=== PATIENT | female | born 1940 | race African-American/Black ===

== ENCOUNTER 2017-06-24 10:24 | Inpatient (IN) | payer OTHER ==
[~2017-06-24 10:24] MED LIST: HEPARIN NA (PORCINE) 5,000 UNITS/ML 1ML VIAL SQ SCH
[2017-06-24 10:36] VITALS: BMI 26.6
[2017-06-24] MEDS ORDERED: ONDANSETRON 4 MG/2 ML VIAL IVPUSH ONE (10:55)
[2017-06-24] MEDS ORDERED: SODIUM CHLORIDE 1,000 ML IV STA (10:55)
--- NOTE | 2017-06-24 11:01 | PDOC ---
History of Present Illness - General History Source: Patient Exam Limitations: No Limitations - History of Present Illness Initial Comments: 06/24/17 11:34 The patient is a 77-year old female with a significant past medical history of hypertension, hyperlipidemia, thyroid disease, biopsy of throat mass, CVA who presents to the ED with vomiting and abdominal pressure. Patient states that she has not been feeling well and reports left sided abdominal pain from gas. She reports taking Maalox with no relief. Patient states that she vomited 2 times today with phlegm. She reports dizziness and mild SOB. She reports intermittent diarrhea. She denies any constipation. She states that she feels weak and was unable to present to her PT at [facility] due to her weakness. She states that she has developed left sided weakness after her CVA and now ambulates with a walker. Patient denies any fever or chills. Denies any chest pressure or leg swelling. Patient denies any vision changes. Patient denies dyspnea, recent travel, or sick contacts. Pt is significant weakness of the L arm (unable to move), and weakness of L leg (able to ambulate with cane). no changes from baseline. No recent travel or known sick contacts. Patient is a poor historian. <Valarie Packer - Last Filed: 06/24/17 13:48> - General History Source: Patient Exam Limitations: No Limitations <Rosetta Gilbert - Last Filed: 06/26/17 20:08> - General Chief Complaint: Pain Stated Complaint: Nausea/Vomiting/ABD PAIN Time Seen by Provider: 06/24/17 10:31 Past History <Valarie Packer - Last Filed: 06/24/17 13:48> - Past Medical History CVA: Yes HTN: Yes Hypercholesterolemia: Yes Psychiatric Problems: Yes Thyroid Disease: Yes - Psycho/Social/Smoking Cessation Hx Anxiety: No Suicidal Ideation: No Smoking Status: No Smoking History: Never smoked Number of Cigarettes Smoked Daily: 0 Information on smoking cessation initiated: No Hx Alcohol Use: No Drug/Substance Use Hx: No <Rosetta Gilbert - Last Filed: 06/26/17 20:08> - Past Medical History Allergies/Adverse Reactions: Allergies Allergy/AdvReac Type Severity Reaction Status Date / Time No Known Allergies Allergy Verified 06/24/17 10:34 Home Medications: Ambulatory Orders Amlodipine Besylate 10 mg PO DAILY 06/24/17 Aspirin [ASA -] 81 mg PO DAILY 06/24/17 Atorvastatin Calcium 40 mg PO HS 06/24/17 Baclofen 10 mg PO Q6H 06/24/17 Biotin 2 tab PO DAILY 06/24/17 Donepezil HCl [Aricept -] 10 mg PO DAILY 06/24/17 Ergocalciferol (Vitamin D2) [Vitamin D2] 2 tab PO DAILY 06/24/17 Mag Carb/Al Hydrox/Alginic AC [Acid Gone Antacid Liquid] 15 ml PO TID 06/24/17 Mirtazapine [Remeron -] 15 mg PO DAILY 06/24/17 Omeprazole 40 mg PO DAILY 06/24/17 Sennosides [Senna] 8.6 mg PO DAILY 06/24/17 Trazodone HCl 50 mg PO DAILY 06/24/17 Review of Systems - Review of Systems Able to Perform ROS?: Yes Comments:: 06/24/17 11:34 GENERAL/CONSTITUTIONAL: No: fever, chills, loss of appetite. HEAD, EYES, EARS, NOSE AND THROAT: No: change in vision, ear pain, discharge, sore throat, throat swelling. CARDIOVASCULAR: No: chest pain, lightheadedness, palpitations, syncope RESPIRATORY: No: cough, shortness of breath, wheezing, hemoptysis, stridor. GASTROINTESTINAL: +left sided abdominal pressure, gas, vomiting, nausea, intermittent diarrhea. No:abdominal cramping, rectal bleeding, constipation. GENITOURINARY: No: dysuria, hematuria, frequency, urgency, flank pain. MUSCULOSKELETAL: No: back pain, neck pain, joint pain, muscle swelling or pain SKIN: No: lesions, pallor, rash or easy bruising. NEUROLOGIC: +headache, weakness. No: vertigo, paresthesias ENDOCRINE: No: unexplained weight gain or loss HEMATOLOGIC/LYMPHATIC: No: anemia, easy bleeding, swelling nodes <Valarie Packer - Last Filed: 06/24/17 13:48> *Physical Exam - Vital Signs Last Vital Signs Temp Pulse Resp BP Pulse Ox 98.7 F 92 H 17 155/91 99 06/24/17 10:32 06/24/17 10:32 06/24/17 10:32 06/24/17 10:32 06/24/17 10:32 - Physical Exam Comments: 06/24/17 13:48 GENERAL: The patient is in no acute distress. HEAD: Normal with no signs of trauma. EYES: PERRLA, EOMI, sclera anicteric, conjunctiva clear. ENT: Ears normal, nares patent, oropharynx clear without exudates. Moist mucous membranes. NECK: Normal range of motion, supple without lymphadenopathy, JVD, or masses. LUNGS: Breath sounds equal, clear to auscultation bilaterally. No wheezes, and no crackles. HEART:Regular rate and rhythm, normal S1 and S2 without murmur, rub or gallop. ABDOMEN: (+) left sided abdominal tenderness in both upper and lower quadrants less in LLQ. Soft, normoactive bowel sounds. No guarding, no rebound. EXTREMITIES: Normal range of motion, no edema. No clubbing or cyanosis. No erythema, or tenderness. NEUROLOGICAL: Cranial nerves II through XII grossly intact. Normal speech. No focal neurological deficits. MUSCULOSKELETAL: Back nontender to palpation, no CVA tenderness SKIN: Warm, Dry, normal turgor, no rashes or lesions noted. <Valarie Packer - Last Filed: 06/24/17 13:48> - Vital Signs Last Vital Signs Temp Pulse Resp BP Pulse Ox 98.7 F 92 H 17 155/91 99 06/24/17 10:32 06/24/17 10:32 06/24/17 10:32 06/24/17 10:32 06/24/17 10:32 <Rosetta Gilbert - Last Filed: 06/26/17 20:08> Heart Score/ECG Review #1 ECG reviewed & interpreted by me at: 11:48 General ECG Interpretation: Sinus Rhythm, Normal Rate, Normal Intervals, No acute ischemic changes 06/24/17 11:48 Twelve-lead EKG was performed and reviewed by me. There is normal sinus rhythm with a normal rate of 88 bpm. The axis is normal. The intervals are normal - pr: 170ms, QRS:90ms, QTc:447ms. There are no ST or T wave abnormalities. <Rosetta Gilbert - Last Filed: 06/26/17 20:08> ED Treatment Course - LABORATORY CBC & Chemistry Diagram: 06/24/17 11:07 06/24/17 11:07 - Medications Given in the ED: ED Medications Discontinued Medications Generic Name Dose Route Start Last Admin Trade Name Bertram PRN Reason Stop Dose Admin Ondansetron HCl 4 mg 06/24/17 10:55 06/24/17 11:10 Zofran Injection IVPUSH 06/24/17 10:56 4 mg ONCE ONE Administration <Valarie Packer - Last Filed: 06/24/17 13:48> - LABORATORY CBC & Chemistry Diagram: 06/25/17 06:00 06/25/17 06:00 - RADIOLOGY Radiology Studies Ordered: Category Date Time Status ABDOMEN & PELVIS CT WITH CONTR [CT] Stat CT Scan 06/24/17 10:53 Ordered <Rosetta Gilbert - Last Filed: 06/26/17 20:08> Medical Decision Making - Medical Decision Making 06/24/17 11:01 A portion of this note was documented by scribe services under my direction. I have reviewed the details of the note, within reason, and agree with the documentation with the following case summary and management plan written by me. Nursing documentation reviewed and incorporated into medical decision making This patient is a 77-year-old female with a history of HTN, HLD, CVA Pt presents to the ER with a complaint of abdominal pain No fevers Emesis x 2 Pt reports prior episodes like this DD: gastritis, pancreatitis, colitis, obstruction less likely Will do: 1. Labs 2. CT abd and pelvis Chemistries hemolyzed and have returned 4 hours later 06/24/17 14:24 Laboratory Tests 06/24/17 13:37 Sodium 141 Potassium 4.1 Chloride 105 Carbon Dioxide 28 BUN 11 Creatinine 0.8 Random Glucose 80 Creatine Kinase 268 H Troponin I 0.02 Total Protein 7.7 Albumin 3.9 Total Amylase 225 H Lipase 2038 H Pt has pancreatitis Due to?? - gallstone, hyperlipidemia??? Will start LR Will monitor closely Will plan to admit 06/24/17 14:34 CT pending PT seen in the ER by Dr Mcgregor 06/24/17 16:00 <Rosetta Gilbert - Last Filed: 06/26/17 20:08> *DC/Admit/Observation/Transfer - Attestations Scribe Attestion: 06/24/17 11:35 Documentation prepared by NOLAN Vigil, acting as medical pathologist for Rosetta Gilbert MD. <Valarie Packer - Last Filed: 06/24/17 13:48> - Discharge Dispostion Admit: Yes <Rosetta Gilbert - Last Filed: 06/26/17 20:08> Diagnosis at time of Disposition: Pancreatitis Qualifiers: Chronicity: acute Pancreatitis type: other Acute pancreatitis complication: unspecified Qualified Code(s): K85.80 - Other acute pancreatitis without necrosis or infection - Discharge Dispostion Condition at time of disposition: Stable - Referrals
[2017-06-24] MEDS ORDERED: ONDANSETRON 4 MG/2 ML VIAL ONE (11:09)
[2017-06-24 11:29] LABS: BASOPHIL 0.5 % (0-2.0); EOSINOPHIL 0.2 % (0-4.5); MCH 27.3 pg (25.7-33.7); MCHC 32.7 g/dl (32.0-36.0); MEAN CELL VOLUME 83.3 fl (80-96); PLATELET COUNT 300 K/MM3 (134-434); RDW 14.8 % (11.6-15.6); WHITE BLOOD COUNT 6.1 K/mm3 (4.0-10.0)
[2017-06-24 12:23] LABS: URINE APPEARANCE SLCLOUDY; URINE BILIRUBIN NEGATIVE (NEGATIVE); URINE BLOOD NEGATIVE (NEGATIVE); URINE COLOR YELLOW; URINE GLUCOSE (UA) NEGATIVE (NEGATIVE); URINE KETONE NEGATIVE (NEGATIVE); URINE NITRITE NEGATIVE (NEGATIVE); URINE PROTEIN NEGATIVE (NEGATIVE); URINE UROBILINOGEN NEGATIVE mg/dL (0.2-1.0)
[2017-06-24 12:24] LABS: URINE LEUK ESTERASE 1+ (NEGATIVE)
[2017-06-24 12:26] LABS: URINE BACTERIA RARE /hpf (NONE SEEN); URINE HYALINE CAST 3 /lpf; URINE MUCUS RARE; URINE RBC <1 /hpf (0-3); URINE WBC 5 /hpf (3-5); YEAST RARE
[2017-06-24 14:13] LABS: ALBUMIN 3.9 g/dl (3.4-5.0); AMYLASE 225 U/L (25-115); ANION GAP 8 (8-16); BILIRUBIN,TOTAL 0.4 mg/dL (0.2-1.0); CALCIUM 9.4 mg/dL (8.5-10.1); CO2 28 mmol/L (21-32); CREATININE 0.8 mg/dL (0.55-1.02); GLUCOSE,RANDOM 80 mg/dL (74-106); SGOT/AST 18 U/L (15-37); SGPT/ALT 29 U/L (12-78); TOT PROT 7.7 g/dl (6.4-8.2)
[2017-06-24 14:16] LABS: ALK PHOS 100 U/L (45-117); CPK 268 IU/L (26-192); TROPONIN I 0.02 ng/ml (0.00-0.05)
[2017-06-24] MEDS: LACTATED RINGERS SOLUTION 1,000 ML IV SCH (15:51)
--- NOTE | 2017-06-24 16:18 | EKG ---
Test Reason : Blood Pressure : / mmHG Vent. Rate : 088 BPM Atrial Rate : 088 BPM P-R Int : 170 ms QRS Dur : 090 ms QT Int : 370 ms P-R-T Axes : 039 -17 023 degrees QTc Int : 447 ms NORMAL SINUS RHYTHM POSSIBLE LEFT ATRIAL ENLARGEMENT BORDERLINE ECG WHEN COMPARED WITH ECG OF 08-FEB-2015 12:11, ST NO LONGER DEPRESSED IN LATERAL LEADS Confirmed by LOS WILSON MD ([id number]) on 06/24/2017 4:18:16 PM Referred By: Confirmed By:LOS WILSON MD
[2017-06-24] MEDS ORDERED: BACLOFEN 10 MG TABLET (FP) PO SCH (16:30)
[2017-06-24] MEDS ORDERED: PROCHLORPERAZINE INJECTION 10 MG/2 ML VIAL IVPB PRN (16:43)
[2017-06-24] MEDS ORDERED: PANTOPRAZOLE 40 MG TABLET (FP) PO SCH (16:45)
[2017-06-24] MEDS ORDERED: BACLOFEN 10 MG TABLET (FP) ONE (16:51)
[2017-06-24 16:52] LABS: CHOLESTEROL 183 mg/dL (50-200); LDL CHOLESTEROL (ONLY SJRH) 92 mg/dL (5-100)
--- NOTE | 2017-06-24 17:17 | HP ---
CHIEF COMPLAINT: LUQ abdominal pain PCP: Dr. Efrain Bucio HISTORY OF PRESENT ILLNESS: Patient is a 77 year old female with a PMHx of HTN, HLD, CVA (w/ residual left sided weakness) who presented for nonradiating, "squeezing and gassy" LUQ abdominal pain and two episodes of nonbloody nonbilious vomiting that started this morning at her adult daycare center. Patients family at bedside and report that her pain has been occurring intermittently for the last couple of months but worsened today and is now associated with dizziness and weakness, which promoted this ED visit. Patient was given Maalox but with no relief of symptoms. Patient otherwise denies fever, chills, chest pain, palpitations, shortness of breath, headache, dysuria, hematuria. PHYSICAL EXAMINATION Vital Signs - 24 hr 06/24/17 16:05 Pulse Rate [ 75 Apical] Respiratory 17 Rate Blood Pressure 160/88 [Right Arm] O2 Sat by Pulse 98 Oximetry (%) GENERAL: Awake, alert, and fully oriented, in no acute distress. HEAD: Normal with no signs of trauma. EYES: Sclera anicteric, conjunctiva clear. EARS, NOSE, THROAT: Oropharynx clear without exudates. Moist mucous membranes. LUNGS: Breath sounds equal, clear to auscultation bilaterally. No wheezes, and no crackles. No accessory muscle use. HEART: Regular rate and rhythm, normal S1 and S2 without murmur, rub or gallop. ABDOMEN: Soft, mild tenderness upon deep palpation of LUQ, not distended, normoactive bowel sounds, no guarding, no rebound, no masses. No hepatomegaly or splenomegaly. MUSCULOSKELETAL: No CVA tenderness. LOWER EXTREMITIES: No peripheral edema. Laboratory Results - last 24 hr 06/24/17 06/24/17 06/24/17 11:07 11:07 11:07 WBC 6.1 D RBC 5.28 H Hgb 14.4 D Hct 44.0 MCV 83.3 MCH 27.3 MCHC 32.7 RDW 14.8 Plt Count 300 MPV 8.0 Neutrophils % 81.0 Lymphocytes % 14.4 D Monocytes % 3.9 Eosinophils % 0.2 Basophils % 0.5 Sodium Cancelled Potassium Cancelled Chloride Cancelled Carbon Dioxide Cancelled Anion Gap Cancelled BUN Cancelled Creatinine Cancelled Creat Clearance w eGFR Cancelled Random Glucose Cancelled Calcium Cancelled Total Bilirubin Cancelled AST Cancelled ALT Cancelled Alkaline Phosphatase Cancelled Creatine Kinase Cancelled Creatine Kinase Index CK-MB (CK-2) Troponin I Cancelled Total Protein Cancelled Albumin Cancelled Triglycerides Cholesterol Total LDL Cholesterol HDL Cholesterol Total Amylase Cancelled Lipase Cancelled Urine Color Yellow Urine Appearance Slcloudy Urine pH 8.0 Ur Specific [place] 1.015 Urine Protein Negative Urine Glucose (UA) Negative Urine Ketones Negative Urine Blood Negative Urine Nitrite Negative Urine Bilirubin Negative Urine Urobilinogen Negative Ur Leukocyte Esterase 1+ H Urine RBC <1 Urine WBC 5 Ur Epithelial Cells Rare Urine Bacteria Rare Hyaline Casts 3 Urine Mucus Rare Urine Yeast Rare 06/24/17 06/24/17 13:37 16:05 WBC RBC Hgb Hct MCV MCH MCHC RDW Plt Count MPV Neutrophils % Lymphocytes % Monocytes % Eosinophils % Basophils % Sodium 141 Potassium 4.1 Chloride 105 Carbon Dioxide 28 Anion Gap 8 BUN 11 Creatinine 0.8 Creat Clearance w eGFR > 60 Random Glucose 80 Calcium 9.4 Total Bilirubin 0.4 D AST 18 ALT 29 D Alkaline Phosphatase 100 Creatine Kinase 268 H Creatine Kinase Index 1.0 CK-MB (CK-2) 2.745 Troponin I 0.02 Total Protein 7.7 Albumin 3.9 Triglycerides 71 Cholesterol 183 Total LDL Cholesterol 92 HDL Cholesterol 72 H Total Amylase 225 H Lipase 2038 H Urine Color Urine Appearance Urine pH Ur Specific [place] Urine Protein Urine Glucose (UA) Urine Ketones Urine Blood Urine Nitrite Urine Bilirubin Urine Urobilinogen Ur Leukocyte Esterase Urine RBC Urine WBC Ur Epithelial Cells Urine Bacteria Hyaline Casts Urine Mucus Urine Yeast IMAGES CT ABDOMEN/PELVIS (06/24/17): Diverticulosis coli in the sigmoid colon without evidence of acute diverticulitis. Fluid-filled slightly dilated mid small bowel loops in the mid abdomen and left lower abdomen with air-fluid levels. Although they may represent ileus, early mid small bowel partial versus complete obstruction cannot be excluded. Follow-up is needed. Hyperdense mass lesion inseparable from superior/anterior wall of the urinary bladder measuring 3.8 cm in maximum dimension . Its relationship to the urinary bladder wall is not clear. Differential diagnosis includes a hyperdense right ovarian mass, among other possibilities such as a bladder wall mass. Correlation with pelvis / urinary bladder ultrasound is needed for further evaluation. Stable complex left renal upper pole cyst with a calcified rim measuring 3 cm. Bilateral renal cysts are present. Some of the smaller cysts may be of indeterminate consistency. Correlation with a nonemergent renal ultrasound is needed to rule out any solid lesion ASSESSMENT/PLAN: Patient is a 77 year old female with a PMHx of HTN, HLD, CVA (w/ residual left sided weakness) who presented for LUQ abdominal pain associated with 2 episodes of vomiting and was found to have a lipase level >2000. Patient admitted for further monitoring and management. Acute Pancreatitis- Unknown Etiology -Lipase >2000 with LUQ pain -CT negative for acute pancreatitis -Lipid panel ordered and revealed normal levels of triglyceride (71) -Medication reconciliation done and patient is currently on no medications that may cause pancreatitis -GI consult placed -IV LR @100mls/hr -Pain control with Tylenol -Continue PPI, as patient takes Omeprazole at home -Will begin with Clear liquid diet as patient is not currently nauseated and reports her last episode of vomiting was earlier this morning. Will place NPO if unable to tolerate clear liquid diet -Compazine for Nausea/vomiting PRN. Will not use Zofran or Reglan due to slightly prolonged QTc Incidental CT findings of Bladder/Pelvic Mass- Asymptomatic, will need outpatient workup. Will provide referrals upon discharge Incidental CT finding of Renal Cysts- Will follow up as patient HTN- Controlled. Continue home medication Amlodopine 10mg daily HLD- Controlled. Continue with Atorvastatin 40mg daily CAD- Continue ASA 81 mg daily Dementia-Continue Aricept 10mg daily History of CVA with residual left sided weakness- Continue Baclofen 10mg daily Depression-Continue Mirtazapine 15mg daily. Continue Trazadone 50mg daily GERD- Continue Omeprazole Prophylaxis- Heparin SQ Q8H for DVT and Omeprazole for GI. Daily Physical therapy Disposition- Admit to med/surg. Awaiting GI consult Aliza Mcgregor- PGY-2 Internal Medicine Case discussed with PGY-1 Dr. Bowles and Attending Dr. Ontiveros Visit type - Emergency Visit Emergency Visit: Yes ED Registration Date: 06/24/17 Care time: The patient presented to the Emergency Department on the above date and was hospitalized for further evaluation of their emergent condition. - New Patient This patient is new to me today: Yes Date on this admission: 06/24/17 - Critical Care Critical Care patient: No
--- NOTE | 2017-06-24 17:43 | HP ---
CHIEF COMPLAINT: Abdominal Pain PCP: Dr. Bucio HISTORY OF PRESENT ILLNESS: Ms. Santos is a 77 yo [place]er female w/ HTN, HLD, GERD, prior CVA who presented to the ER with 1 week of worsening LUQ/epigastric pain. The pain is nonradiating , dull, "gas-like", relieved only minimally with Maalox. She had associated NBNB emesis x2 and loss of appetite. The pain does not improve with positional changes. She denies chest pain or angina like symptoms. She denies roaring back pain. She denies heartburn or burning epigastric pain. She denies history of gallstones or colicky RUQ pain after meals. She denies alcohol abuse, new medications, or abdominal trauma. 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 [employer] Smoking: Denies Alcohol: Denies Drugs: Denies Family History: Noncontributory Allergies No Known Allergies Allergy (Verified 06/24/17 10:34) HOME MEDICATIONS: Home Medications Medication Instructions Recorded Amlodipine Besylate 10 mg PO DAILY 06/24/17 Aspirin [ASA -] 81 mg PO DAILY 06/24/17 Atorvastatin Calcium 40 mg PO HS 06/24/17 Baclofen 10 mg PO Q6H 06/24/17 Biotin 2 tab PO DAILY 06/24/17 Donepezil HCl [Aricept -] 10 mg PO DAILY 06/24/17 Ergocalciferol (Vitamin D2) 2 tab PO DAILY 06/24/17 [Vitamin D2] Mag Carb/Al Hydrox/Alginic AC 15 ml PO TID 06/24/17 [Acid Gone Antacid Liquid] Mirtazapine [Remeron -] 15 mg PO DAILY 06/24/17 Omeprazole 40 mg PO DAILY 06/24/17 Sennosides [Senna] 8.6 mg PO DAILY 06/24/17 Trazodone HCl 50 mg PO DAILY 06/24/17 REVIEW OF SYSTEMS CONSTITUTIONAL: Absent: fever, chills, diaphoresis, generalized weakness, malaise, loss of appetite, weight change HEENT: Absent: rhinorrhea, nasal congestion, throat pain, throat swelling, difficulty swallowing, mouth swelling, ear pain, eye pain, visual changes CARDIOVASCULAR: Absent: chest pain, syncope, palpitations, irregular heart rate, lightheadedness , peripheral edema RESPIRATORY: Absent: cough, shortness of breath, dyspnea with exertion, orthopnea, wheezing, stridor, hemoptysis GASTROINTESTINAL: Absent: abdominal distension, nausea, vomiting, diarrhea, constipation, melena, hematochezia Present: abdominal pain GENITOURINARY: Absent: dysuria, frequency, urgency, hesitancy, hematuria, flank pain, genital pain MUSCULOSKELETAL: Absent: myalgia, arthralgia, joint swelling, back pain, neck pain SKIN: Absent: rash, itching, pallor HEMATOLOGIC/IMMUNOLOGIC: Absent: easy bleeding, easy bruising, lymphadenopathy, frequent infections ENDOCRINE: Absent: unexplained weight gain, unexplained weight loss, heat intolerance, cold intolerance NEUROLOGIC: Absent: headache, focal weakness or paresthesias, dizziness, unsteady gait, seizure, mental status changes, bladder or bowel incontinence PSYCHIATRIC: Absent: anxiety, depression, suicidal or homicidal ideation, hallucinations. PHYSICAL EXAMINATION Vital Signs - 24 hr 06/24/17 06/24/17 10:32 16:05 Temperature 98.7 F Pulse Rate 92 H Pulse Rate [ 75 Apical] Respiratory 17 17 Rate Blood Pressure 155/91 Blood Pressure 160/88 [Right Arm] O2 Sat by Pulse 99 98 Oximetry (%) GEN: AAOx3, NAD, Lying comfortably in bed HEENT: PERRLA, EOMi, No cervical LAD CV: S1, S2, RRR Lung: CTABL Abd: Soft, very minimal tenderness to palpation in LUQ/epigastric area MSK: No edema, no erythema, normal ROM on R side R shoulder 3/5; R arm 1/5; R hand 0/5; R fingers 0/5 L side 5/5 Neuro: CN 2-12 intact, no sensation deficits, MSK deficits above from prior CVA Laboratory Last Values WBC 6.1 K/mm3 (4.0-10.0) D 06/24/17 11:07 RBC 5.28 M/mm3 (3.60-5.2) H 06/24/17 11:07 Hgb 14.4 GM/dL (10.7-15.3) D 06/24/17 11:07 Hct 44.0 % (32.4-45.2) 06/24/17 11:07 MCV 83.3 fl (80-96) 06/24/17 11:07 MCH 27.3 pg (25.7-33.7) 06/24/17 11:07 MCHC 32.7 g/dl (32.0-36.0) 06/24/17 11:07 RDW 14.8 % (11.6-15.6) 06/24/17 11:07 Plt Count 300 K/MM3 (134-434) 06/24/17 11:07 MPV 8.0 fl (7.5-11.1) 06/24/17 11:07 Neutrophils % 81.0 % (42.8-82.8) 06/24/17 11:07 Lymphocytes % 14.4 % (8-40) D 06/24/17 11:07 Monocytes % 3.9 % (3.8-10.2) 06/24/17 11:07 Eosinophils % 0.2 % (0-4.5) 06/24/17 11:07 Basophils % 0.5 % (0-2.0) 06/24/17 11:07 Sodium 141 mmol/L (136-145) 06/24/17 13:37 Potassium 4.1 mmol/L (3.5-5.1) 06/24/17 13:37 Chloride 105 mmol/L (98-107) 06/24/17 13:37 Carbon Dioxide 28 mmol/L (21-32) 06/24/17 13:37 Anion Gap 8 (8-16) 06/24/17 13:37 BUN 11 mg/dL (7-18) 06/24/17 13:37 Creatinine 0.8 mg/dL (0.55-1.02) 06/24/17 13:37 Creat Clearance w eGFR > 60 (>60) 06/24/17 13:37 Random Glucose 80 mg/dL (74-106) 06/24/17 13:37 Calcium 9.4 mg/dL (8.5-10.1) 06/24/17 13:37 Total Bilirubin 0.4 mg/dL (0.2-1.0) D 06/24/17 13:37 AST 18 U/L (15-37) 06/24/17 13:37 ALT 29 U/L (12-78) D 06/24/17 13:37 Alkaline Phosphatase 100 U/L (45-117) 06/24/17 13:37 Creatine Kinase 268 IU/L (26-192) H 06/24/17 13:37 Creatine Kinase Index 1.0 % (0.0-5.0) 06/24/17 13:37 CK-MB (CK-2) 2.745 ng/mL (0.5-3.6) 06/24/17 13:37 Troponin I 0.02 ng/ml (0.00-0.05) 06/24/17 13:37 Total Protein 7.7 g/dl (6.4-8.2) 06/24/17 13:37 Albumin 3.9 g/dl (3.4-5.0) 06/24/17 13:37 Triglycerides 71 mg/dL (35-160) 06/24/17 16:05 Cholesterol 183 mg/dL (50-200) 06/24/17 16:05 Total LDL Cholesterol 92 mg/dL (5-100) 06/24/17 16:05 HDL Cholesterol 72 mg/dL (40-60) H 06/24/17 16:05 Total Amylase 225 U/L (25-115) H 06/24/17 13:37 Lipase 2038 U/L (73-393) H 06/24/17 13:37 Urine Color Yellow 06/24/17 11:07 Urine Appearance Slcloudy 06/24/17 11:07 Urine pH 8.0 (5.0-8.0) 06/24/17 11:07 Ur Specific Win[place] 1.015 (1.005-1.025) 06/24/17 11:07 Urine Protein Negative (NEGATIVE) 06/24/17 11:07 Urine Glucose (UA) Negative (NEGATIVE) 06/24/17 11:07 Urine Ketones Negative (NEGATIVE) 06/24/17 11:07 Urine Blood Negative (NEGATIVE) 06/24/17 11:07 Urine Nitrite Negative (NEGATIVE) 06/24/17 11:07 Urine Bilirubin Negative (NEGATIVE) 06/24/17 11:07 Urine Urobilinogen Negative mg/dL (0.2-1.0) 06/24/17 11:07 Ur Leukocyte Esterase 1+ (NEGATIVE) H 06/24/17 11:07 Urine RBC <1 /hpf (0-3) 06/24/17 11:07 Urine WBC 5 /hpf (3-5) 06/24/17 11:07 Ur Epithelial Cells Rare /hpf (FEW) 06/24/17 11:07 Urine Bacteria Rare /hpf (NONE SEEN) 06/24/17 11:07 Hyaline Casts 3 /lpf 06/24/17 11:07 Urine Mucus Rare 06/24/17 11:07 Urine Yeast Rare 06/24/17 11:07 Home Medication List Medication Instructions Recorded Confirmed Type Amlodipine Besylate 10 mg PO DAILY 06/24/17 06/24/17 History Aspirin [ASA -] 81 mg PO DAILY 06/24/17 06/24/17 History Atorvastatin Calcium 40 mg PO HS 06/24/17 06/24/17 History Baclofen 10 mg PO Q6H 06/24/17 06/24/17 History Biotin 2 tab PO DAILY 06/24/17 06/24/17 History Donepezil HCl [Aricept -] 10 mg PO DAILY 06/24/17 06/24/17 History Ergocalciferol (Vitamin D2) 2 tab PO DAILY 06/24/17 06/24/17 History [Vitamin D2] Mag Carb/Al Hydrox/Alginic AC 15 ml PO TID 06/24/17 06/24/17 History [Acid Gone Antacid Liquid] Mirtazapine [Remeron -] 15 mg PO DAILY 06/24/17 06/24/17 History Omeprazole 40 mg PO DAILY 06/24/17 06/24/17 History Sennosides [Senna] 8.6 mg PO DAILY 06/24/17 06/24/17 History Trazodone HCl 50 mg PO DAILY 06/24/17 06/24/17 History Active Medications Generic Name Dose Route Start Last Admin Trade Name Freq PRN Reason Stop Dose Admin Acetaminophen 650 mg 06/24/17 16:43 Tylenol - PO Q4H PRN FEVER OR PAIN Amlodipine Besylate 10 mg 06/25/17 10:00 Norvasc - PO DAILY [facility] Aspirin 81 mg 06/25/17 10:00 Asa - PO DAILY [facility] Atorvastatin Calcium 40 mg 06/24/17 22:00 Lipitor - PO HS MAO Baclofen 10 mg 06/24/17 16:30 06/24/17 16:52 Lioresal - PO 10 mg Q6H MAO Administration Donepezil HCl 10 mg 06/25/17 10:00 Aricept - PO DAILY MAO Heparin Sodium (Porcine) 5,000 unit 06/24/17 18:00 06/24/17 19:07 Heparin - SQ 5,000 unit Q8H-IV MAO Administration Lactated Ringer's 1,000 mls @ 100 mls/hr 06/24/17 15:00 06/24/17 15:51 Lactated Ringers Solution IV 100 mls/hr ASDIR MAO Administration Mirtazapine 15 mg 06/25/17 22:00 Remeron - PO HS MAO Non-Formulary Medication 15 ml 06/24/17 22:00 Mag Carb/Al Hydrox/Alginic Ac [Acid Gone Antacid Liquid] PO TID MAO Pantoprazole Sodium 40 mg 06/25/17 10:00 Protonix - PO DAILY MAO Prochlorperazine Edisylate 2.5 mg 06/24/17 16:43 Compazine Injection - IVPB Q4H PRN NAUSEA AND/OR VOMITING Senna 1 tab 06/25/17 10:00 Senna - PO DAILY MAO Trazodone HCl 50 mg 06/25/17 10:00 Desyrel - PO DAILY MAO ASSESSMENT/PLAN: Ms. Santos is a 77yo F with PMHx of GERD, HTN, HLD, prior CVA with residual L sided deficits who presented with 1 week of worsening LUQ/epigastric pain and elevated lipase >2000, admitted for acute pancreatitis. # Acute Pancreatitis - Unclear Etiology (no stones, NL Lipid panel, no assoc drugs, no new drugs, no trauma, no alcohol) - CT abdomen shows no pancreatic pathology - LR @ 100cc/hr - Clear liquid diet - Compazine PRN for nausea as QTc is >440 - Continue home PPI Omeprazole - GI Consulted # Bladder/Pelvic Mass - Incidentally found on CT abdomen, new from 2004, 3.8cm - Asymptomatic, unrelated to current symptoms - Will need pelvic and bladder U/S as outpatient # Renal Cysts - Known, mostly stable from prior CT in 2004 - F/u as outpatient # Left sided weakness - Residual from prior CVA - Continue Baclofen 10mg daily for L arm spasticity # Hx of HTN - Continue Amlodipine 10mg daily # Hx of Dementia - Continue Aricept 10mg daily # Hx of CAD - Continue ASA 81mg daily # Hx of HLD - well controlled - Continue Atorvastatin 40mg daily # Hx of GERD - Continue Omeprazole # Hx of Depression - Continue Mirtazapine 15mg daily - Continue Trazodone 50mg daily # Hx of Constipation - Continue Senna daily # FEN - Fluids: LR @ 100cc/hr - Electrolytes: No abnormalities - Nutrition: Clear liquids # Prophylaxis - DVT: Heparin SQ TID - GI: Pt on omeprazole - Deconditioning: PT ordered, f/u # Dispo - Admit to Med/surg - f/u GI reccs, advance diet as tolerated # Med Rec - Med list was confirmed with home med list - Pharmacy will also fax additional list to the floor Dr. Shereen Bowles MD - PGY1 Internal Medicine Case was discussed with senior resident Dr. Mcgregor and attending Dr. Ontiveros Visit type - Emergency Visit Emergency Visit: Yes ED Registration Date: 06/24/17 Care time: The patient presented to the Emergency Department on the above date and was hospitalized for further evaluation of their emergent condition. - New Patient This patient is new to me today: Yes Date on this admission: 06/24/17 - Critical Care Critical Care patient: No
[2017-06-24] MEDS ORDERED: HEPARIN NA (PORCINE) 5,000 UNITS/ML 1ML VIAL SQ SCH (18:00)
--- NOTE | 2017-06-24 19:02 | PN ---
Teaching Attending Note Name of Resident: Shereen Bowles ATTENDING PHYSICIAN STATEMENT I saw and evaluated the patient. I reviewed the resident's note and discussed the case with the resident. I agree with the resident's findings and plan as documented. SUBJECTIVE: This is a 77-year-old woman with a history of CAD, HTN, hyperlipidemia, CVA, GERD, depression, dementia who comes to the ER complaining of LUQ abdominal pain, nausea, vomiting. She denies hematemesis, diarrhea, constipation, melena, rectal bleeding, weight loss. OBJECTIVE: Vital Signs Period Temp Pulse Resp BP Sys/Muniz Pulse Ox Last 24 Hr 98.7 F-99.4 F 64-92 17-18 148-160/73-91 98-99 HEART: S1S2, RRR LUNGS: Clear ABDOMEN: Soft, non-distended, (+) LUQ tenderness, normal BS EXTREMITIES: No edema ASSESSMENT AND PLAN: This is a 77 year old woman with a history of CAD, GERD, HTN, hyperlipidemia, CVA, dementia, depression who presented to the ER with worsening LUQ pain. 1. Possible acute pancreatitis - No clear etiology - IV fluid, clear liquid diet - Monitor lipase - GI consult 2. Pelvic mass - Outpatient pelvic US 3. Bilateral renal cysts - Outpatient renal US 4. Left hemiparesis secondary to old CVA - Continue aspirin 5. HTN - Continue Norvasc 6. Hyperlipidemia - Continue Lipitor 7. CAD - Continue aspirin 8. Dementia - Continue Aricept 9. GERD - Continue Prilosec 10. Depression - Continue Remeron, Trazodone
[2017-06-24] MEDS: ATORVASTATIN CA 40 MG TABLET (FP) PO SCH (22:12)
[2017-06-25] MEDS: BACLOFEN 10 MG TABLET (FP) PO SCH ×4 (00:22→18:15)
[2017-06-25] MEDS: HEPARIN NA (PORCINE) 5,000 UNITS/ML 1ML VIAL SQ SCH ×3 (05:25→22:41)
[2017-06-25 08:12] LABS: MCH 27.1 pg (25.7-33.7); MCHC 32.4 g/dl (32.0-36.0); MEAN CELL VOLUME 83.8 fl (80-96); MEAN PLT VOLUME 8.1 fl (7.5-11.1); PLATELET COUNT 264 K/MM3 (134-434); RDW 15.1 % (11.6-15.6); WHITE BLOOD COUNT 5.3 K/mm3 (4.0-10.0)
[2017-06-25 08:42] LABS: ALBUMIN 3.5 g/dl (3.4-5.0); ALK PHOS 87 U/L (45-117); ANION GAP 7 (8-16); CALCIUM 8.9 mg/dL (8.5-10.1); CO2 27 mmol/L (21-32); CREATININE 0.8 mg/dL (0.55-1.02); GLUCOSE,RANDOM 98 mg/dL (74-106); SGOT/AST 21 U/L (15-37); SGPT/ALT 30 U/L (12-78); TOT PROT 6.6 g/dl (6.4-8.2)
[2017-06-25] MEDS: ASPIRIN 81 MG CHEWABLE TABLETS PO SCH (09:29)
[2017-06-25] MEDS: PANTOPRAZOLE 40 MG TABLET (FP) PO SCH (09:29)
[2017-06-25] MEDS: SENNOSIDES 8.6MG TABLET (FP) PO SCH ×2 (09:29→09:35)
[2017-06-25] MEDS: amLODIPine BESYLATE 10 MG TABLET (FP) PO SCH (09:29)
[2017-06-25] MEDS: ACETAMINOPHEN 325 MG TABLET (FP) PO PRN (09:30)
[2017-06-25] MEDS: DONEPEZIL HCL 10 MG TABLET (FP) PO SCH (09:30)
[2017-06-25] MEDS: traZODone HCL 50 MG TABLET (FP) PO SCH (09:30)
[2017-06-25] MEDS ORDERED: BIOTIN PO SCH (10:00)
[2017-06-25] MEDS ORDERED: ERGOCALCIFEROL PO SCH (10:00)
--- NOTE | 2017-06-25 15:12 | CON.GI ---
Consult Consult Specialty:: Gastroenterology Referred by:: Dr. Ontiveros Reason for Consultation:: abdominal pain - History of Present Illness Chief Complaint: abdominal pain, vomiting History of Present Illness: 77F presents to ER with c/o LUQ pain leading 2x NBNB emesis yesterday morning. The pain has since resolved. At present she is willing to try a solid diet. She describes having had a recently upper endoscopy at [facility], which she believes to be normal. She denies every having a colonoscopy, past GI problems, or GI surgery. Her appetite has been good, and she denies any weight loss. Denies using EtOH. - History Source History Provided By: Patient Limitations to Obtaining History: Poor Historian - Past Medical History INSTITUTIONAL NUTRITION CONSULTANT: Yes: CVA (with residual UE>LE hemiparesis) Cardio/Vascular: Yes: HTN, Hyperlipdemia Gastrointestinal: Yes: Other (had recent EGD at [facility], which she believes is normal, but is taking Omeprazole) ...: No - Past Surgical History Additional Surgical History: s/p thyroid surgery - Alcohol/Substance Use Hx Alcohol Use: No History of Substance Use: reports: None - Smoking History Smoking history: Never smoked Have you smoked in the past 12 months: No Aproximately how many cigarettes per day: 0 - Social History Usual Living Arrangement: With Child ADL: Support Services ([facility]) Occupation: retired house keeper Place of : Other ([facility]) Home Medications - Allergies Allergies/Adverse Reactions: Allergies Allergy/AdvReac Type Severity Reaction Status Date / Time No Known Allergies Allergy Verified 06/24/17 10:34 - Home Medications Home Medications: Ambulatory Orders Amlodipine Besylate 10 mg PO DAILY 06/24/17 Aspirin [ASA -] 81 mg PO DAILY 06/24/17 Atorvastatin Calcium 40 mg PO HS 06/24/17 Baclofen 10 mg PO Q6H 06/24/17 Biotin 2 tab PO DAILY 06/24/17 Donepezil HCl [Aricept -] 10 mg PO DAILY 06/24/17 Ergocalciferol (Vitamin D2) [Vitamin D2] 2 tab PO DAILY 06/24/17 Mag Carb/Al Hydrox/Alginic AC [Acid Gone Antacid Liquid] 15 ml PO TID 06/24/17 Mirtazapine [Remeron -] 15 mg PO DAILY 06/24/17 Omeprazole 40 mg PO DAILY 06/24/17 Sennosides [Senna] 8.6 mg PO DAILY 06/24/17 Trazodone HCl 50 mg PO DAILY 06/24/17 Family Disease History - Family Disease History Family Disease History: Respiratory: Sister (asthma) Other Family History: Denies family history of cancer Review of Systems - Review of Systems Constitutional: denies: Lethargy, Loss of Appetite, Unintentional Wgt. Loss HENT: denies: Difficult Swallowing Cardiovascular: denies: Chest Pain, Palpitations Gastrointestinal: denies: Abdominal Pain, Constipation, Melena, Rectal Bleeding , Vomiting Blood Genitourinary: reports: Frequency. denies: Burning Musculoskeletal: reports: Joint Pain (L knee pain) Neurological: reports: Pre-Existing Deficit (s/p CVA with residual UE>LE weakness) Physical Exam-GI Vital Signs: Vital Signs Temperature 98.2 F 06/25/17 10:00 Pulse Rate 60 06/25/17 10:00 Respiratory Rate 18 06/25/17 10:00 Blood Pressure 138/72 06/25/17 10:00 O2 Sat by Pulse Oximetry (%) 97 06/25/17 09:00 CBC,CMP WBC 5.3 K/mm3 (4.0-10.0) 06/25/17 06:00 RBC 4.33 M/mm3 (3.60-5.2) 06/25/17 06:00 Hgb 11.8 GM/dL (10.7-15.3) D 06/25/17 06:00 Hct 36.3 % (32.4-45.2) D 06/25/17 06:00 MCV 83.8 fl (80-96) 06/25/17 06:00 MCH 27.1 pg (25.7-33.7) 06/25/17 06:00 MCHC 32.4 g/dl (32.0-36.0) 06/25/17 06:00 RDW 15.1 % (11.6-15.6) 06/25/17 06:00 Plt Count 264 K/MM3 (134-434) 06/25/17 06:00 MPV 8.1 fl (7.5-11.1) 06/25/17 06:00 Neutrophils % 81.0 % (42.8-82.8) 06/24/17 11:07 Lymphocytes % 14.4 % (8-40) D 06/24/17 11:07 Monocytes % 3.9 % (3.8-10.2) 06/24/17 11:07 Eosinophils % 0.2 % (0-4.5) 06/24/17 11:07 Basophils % 0.5 % (0-2.0) 06/24/17 11:07 Sodium 139 mmol/L (136-145) 06/25/17 06:00 Potassium 3.7 mmol/L (3.5-5.1) 06/25/17 06:00 Chloride 105 mmol/L (98-107) 06/25/17 06:00 Carbon Dioxide 27 mmol/L (21-32) 06/25/17 06:00 Anion Gap 7 (8-16) L 06/25/17 06:00 BUN 9 mg/dL (7-18) 06/25/17 06:00 Creatinine 0.8 mg/dL (0.55-1.02) 06/25/17 06:00 Creat Clearance w eGFR > 60 (>60) 06/25/17 06:00 Random Glucose 98 mg/dL (74-106) D 06/25/17 06:00 Calcium 8.9 mg/dL (8.5-10.1) 06/25/17 06:00 Total Bilirubin 1.0 mg/dL (0.2-1.0) D 06/25/17 06:00 AST 21 U/L (15-37) 06/25/17 06:00 ALT 30 U/L (12-78) 06/25/17 06:00 Alkaline Phosphatase 87 U/L (45-117) 06/25/17 06:00 Creatine Kinase 268 IU/L (26-192) H 06/24/17 13:37 Creatine Kinase Index 1.0 % (0.0-5.0) 06/24/17 13:37 CK-MB (CK-2) 2.745 ng/mL (0.5-3.6) 06/24/17 13:37 Troponin I 0.02 ng/ml (0.00-0.05) 06/24/17 13:37 Total Protein 6.6 g/dl (6.4-8.2) 06/25/17 06:00 Albumin 3.5 g/dl (3.4-5.0) 06/25/17 06:00 Triglycerides 71 mg/dL (35-160) 06/24/17 16:05 Cholesterol 183 mg/dL (50-200) 06/24/17 16:05 Total LDL Cholesterol 92 mg/dL (5-100) 06/24/17 16:05 HDL Cholesterol 72 mg/dL (40-60) H 06/24/17 16:05 Total Amylase 225 U/L (25-115) H 06/24/17 13:37 Lipase 896 U/L (73-393) H 06/25/17 06:00 Current Medications Generic Name Dose Route Start Last Admin Trade Name Freq PRN Reason Stop Dose Admin Acetaminophen 650 mg 06/24/17 16:43 06/25/17 09:30 Tylenol - PO 650 mg Q4H PRN Administration FEVER OR PAIN Amlodipine Besylate 10 mg 06/25/17 10:00 06/25/17 09:29 Norvasc - PO 10 mg DAILY MAO Administration Aspirin 81 mg 06/25/17 10:00 06/25/17 09:29 Asa - PO 81 mg DAILY MAO Administration Atorvastatin Calcium 40 mg 06/24/17 22:00 06/24/17 22:12 Lipitor - PO 40 mg HS MAO Administration Baclofen 10 mg 06/25/17 00:00 06/25/17 12:54 Lioresal - PO Not Given Q6HPO MAO Donepezil HCl 10 mg 06/25/17 10:00 06/25/17 09:30 Aricept - PO 10 mg DAILY MAO Administration Heparin Sodium (Porcine) 5,000 unit 06/25/17 06:00 06/25/17 13:40 Heparin - SQ 5,000 unit TID MAO Administration Lactated Ringer's 1,000 mls @ 100 mls/hr 06/24/17 15:00 06/24/17 15:51 Lactated Ringers Solution IV 100 mls/hr ASDIR MAO Administration Mirtazapine 15 mg 06/25/17 22:00 Remeron - PO HS MAO Non-Formulary Medication 15 ml 06/24/17 22:00 Mag Carb/Al Hydrox/Alginic Ac [Acid Gone Antacid Liquid] PO TID MAO Pantoprazole Sodium 40 mg 06/25/17 10:00 06/25/17 09:29 Protonix - PO 40 mg DAILY MAO Administration Prochlorperazine Edisylate 2.5 mg 06/24/17 16:43 Compazine Injection - IVPB Q4H PRN NAUSEA AND/OR VOMITING Senna 1 tab 06/25/17 10:00 06/25/17 09:35 Senna - PO Not Given DAILY MAO Trazodone HCl 50 mg 06/25/17 10:00 06/25/17 09:30 Desyrel - PO 50 mg DAILY MAO Administration Constitutional: Yes: No Distress, Calm Eyes: Yes: Conjunctiva Clear Neck: Yes: Supple, Other (low transverse healed incision) Cardiovascular: Yes: Regular Rate and Rhythm, S1, S2. No: Murmur Respiratory: Yes: CTA Bilaterally Gastrointestinal Inspection: Yes: Other (soft, symmetrical, non-distended) ...Auscultate: Yes: Hypoactive Bowel Sounds, Other ...Palpate: Yes: Soft, Other (non-tender) ...Rectal Exam: Yes: Guaiac Negative, Other (No mass) Edema: No Peripheral Pulses WNL: Yes Integumentary: Yes: WNL Neurological: Yes: Alert, Pre-Existing Deficit (LUE weakness) Labs: CBC, BMP 06/25/17 06:00 06/25/17 06:00 Laboratory Tests 06/24/17 06/25/17 13:37 06:00 Total Bilirubin 0.4 D AST 18 ALT 29 D Alkaline Phosphatase 100 Creatine Kinase 268 H Total Amylase 225 H Lipase 2038 H 896 H Imaging - Results Cat Scan: Report Reviewed (Tim Barrios Name: [facility] DEPARTMENT OF RADIOLOGY Phys: Rosetta Gilbert MD : 1940 Age: 77 Sex: F [facility] Acct: [id number] Loc: [address] Exam Date: 06/24/17 Status: JESSICA [place] [id number] Unit Number: [id number] EXAM#: TYPE/EXAM: RESULT: 28 CT/ABDOMEN PELVIS CT WITH CONTR Left side abdominal pain. CT scan of the abdomen and pelvis following intravenous contrast. Coronal and sagittal reformatted images were obtained 95 cc of Omnipaque 350 was intravenously injected Comparison: Prior CT scan of the abdomen pelvis dated 12/26/2004 Motion artifacts are slightly limiting this exam The heart is borderline in size. There are minimal bibasal atelectatic changes. Evaluation of the liver, spleen, pancreas, gallbladder and both adrenal glands remain unremarkable. Nondistended stomach and hence its wall cannot be evaluated. Previously visualized left renal upper pole exophytic cyst with calcified rim is again seen measuring 3 cm without gross interval change. Multiple other smaller left renal cysts are present measuring up to 1.8 cm. There are also multiple right renal cysts with the largest measuring 2.8 cm. Some of the smaller cysts are of indeterminate consistency. Correlation with renal ultrasound is needed. There is no evidence of hydroureteronephrosis or ureteral stone, bilaterally. Partially distended bladder. There is an approximately 3.8 cm hypodense mass seen along and inseparable from its anterior wall. Normal size uterus. The left ovary is identified. Right ovary is not seen. Fluid-filled slightly dilated mid and left lower abdomen small bowel loops with air-fluid levels. Normal-appearing terminal ileum and appendix. Multiple diverticula in the sigmoid colon without evidence of acute left colitis. No free air, free fluid or enlarged lymph nodes are identified. There is moderate degenerative disc disease at L4-L5 level. Visualized osseous structures appear intact. Impression: Diverticulosis coli in the sigmoid colon without evidence of acute diverticulitis. Fluid-filled slightly dilated mid small bowel loops in the mid abdomen and left lower abdomen with air-fluid levels. Although they may represent ileus, early mid small bowel partial versus complete obstruction cannot be excluded. Follow-up is needed. Hyperdense mass lesion inseparable from superior/anterior wall of the urinary bladder measuring 3.8 cm in maximum dimension . Its relationship to the urinary bladder wall is not clear. Differential diagnosis includes a hyperdense right ovarian mass, among other possibilities such as a bladder wall mass. Correlation with pelvis /urinary bladder ultrasound is needed for further evaluation. Stable complex left renal upper pole cyst with a calcified rim measuring 3 cm. Bilateral renal cysts are present. Some of the smaller cysts may be of indeterminate consistency. Correlation with a nonemergent renal ultrasound is needed to rule out any solid lesion. Reported By: Mitali Lockhart MD 06/24/17 2706 Rosetta Gilbert Technologist : Beth Casiano Transcribed Date/Time: 06/24/17 3425 Quality Compliance Coordinator: Mitali Lockhart Printed Date/Time: [ rep prt dt last] [ rep prt tm last] By: [ rep prt user last] Signed by: Mitali Lockhart Signed on: 24-Jun-2017 16:43) Problem List - Problems (1) Constipated Code(s): K59.00 - CONSTIPATION, UNSPECIFIED (2) Pelvic mass in female Code(s): R19.00 - INTRA-ABD AND PELVIC SWELLING, MASS AND LUMP, UNSP SITE (3) S/P thyroid surgery Code(s): Z98.890 - OTHER SPECIFIED POSTPROCEDURAL STATES Assessment/Plan Despite the significant amylase and lipase elevations, the patient self limited abdominal pain and vomiting argues against clinical pancreatitis. The elevations may instead be related to pancreatic neoplasm. The rapid resolution of her symptoms and the finding of hard stool in the rectum suggests fecal impaction due to constipation aggravated by Baclofen and Senna. Miralax will therefore be started, a triple contrast CT scan with attention to pancreas has been discussed with Dr. Bowles. This will also provide an improved assessment of her pelvic mass. We have also advised BEHAVIORAL HEALTH CARE MANAGER and Urology consultation. Tumor markers for ovarian and pacreatic cancer will be ordered. The patient's diet will be advanced. We have asked Dr. Bowles to try to retrieve results of her EGD. Colonoscopy for colon cancer screening has also been discussed with the patient. Plan: 1) Miralax BID 2) Triphasic CT of abdomen and pelvis 3) CA 19.9 and CA-125 4) Advance diet Dr. Price will be covering this weekend. Patient seen, examined, and discussed with resident Dr. Alonso, PGY-1.
--- NOTE | 2017-06-25 16:02 | PN ---
Physical Exam: SUBJECTIVE: Patient seen and examined this AM. Other than a headache, pt has no complaints. Abdominal pain has improved. Pt is tolerating diet well. No fevers, no chills, no CP, no SOB. OBJECTIVE: Vital Signs Period Temp Pulse Resp BP Sys/Muniz Pulse Ox Last 24 Hr 97.8 F-99.4 F 59-98 16-20 114-160/66-88 97-99 GEN: AAOx3, NAD, Lying comfortably in bed HEENT: PERRLA, EOMi, No cervical LAD CV: S1, S2, RRR Lung: CTABL Abd: Soft, minimal tenderness to palpation in epigastric area MSK: No edema, no erythema, normal ROM on R side R shoulder 3/5; R arm 1/5; R hand 0/5; R fingers 0/5 L side 5/5 Neuro: CN 2-12 intact, no sensation deficits, MSK deficits above from prior CVA Laboratory Results - last 24 hr 06/24/17 06/25/17 06/25/17 16:05 06:00 06:00 WBC 5.3 RBC 4.33 Hgb 11.8 D Hct 36.3 D MCV 83.8 MCH 27.1 MCHC 32.4 RDW 15.1 Plt Count 264 MPV 8.1 Sodium 139 Potassium 3.7 Chloride 105 Carbon Dioxide 27 Anion Gap 7 L BUN 9 Creatinine 0.8 Creat Clearance w eGFR > 60 Random Glucose 98 D Calcium 8.9 Total Bilirubin 1.0 D AST 21 ALT 30 Alkaline Phosphatase 87 Total Protein 6.6 Albumin 3.5 Triglycerides 71 Cholesterol 183 Total LDL Cholesterol 92 HDL Cholesterol 72 H Lipase 896 H Active Medications Generic Name Dose Route Start Last Admin Trade Name Freq PRN Reason Stop Dose Admin Acetaminophen 650 mg 06/24/17 16:43 06/25/17 09:30 Tylenol - PO 650 mg Q4H PRN Administration FEVER OR PAIN Amlodipine Besylate 10 mg 06/25/17 10:00 06/25/17 09:29 Norvasc - PO 10 mg DAILY MAO Administration Aspirin 81 mg 06/25/17 10:00 06/25/17 09:29 Asa - PO 81 mg DAILY MAO Administration Atorvastatin Calcium 40 mg 06/24/17 22:00 06/24/17 22:12 Lipitor - PO 40 mg HS MAO Administration Baclofen 10 mg 06/25/17 00:00 06/25/17 12:54 Lioresal - PO Not Given Q6HPO MAO Donepezil HCl 10 mg 06/25/17 10:00 06/25/17 09:30 Aricept - PO 10 mg DAILY MAO Administration Heparin Sodium (Porcine) 5,000 unit 06/25/17 06:00 06/25/17 13:40 Heparin - SQ 5,000 unit TID MAO Administration Lactated Ringer's 1,000 mls @ 100 mls/hr 06/24/17 15:00 06/24/17 15:51 Lactated Ringers Solution IV 100 mls/hr ASDIR MAO Administration Mirtazapine 15 mg 06/25/17 22:00 Remeron - PO HS MAO Non-Formulary Medication 15 ml 06/24/17 22:00 Mag Carb/Al Hydrox/Alginic Ac [Acid Gone Antacid Liquid] PO TID MAO Pantoprazole Sodium 40 mg 06/25/17 10:00 06/25/17 09:29 Protonix - PO 40 mg DAILY MAO Administration Prochlorperazine Edisylate 2.5 mg 06/24/17 16:43 Compazine Injection - IVPB Q4H PRN NAUSEA AND/OR VOMITING Senna 1 tab 06/25/17 10:00 06/25/17 09:35 Senna - PO Not Given DAILY MAO Trazodone HCl 50 mg 06/25/17 10:00 06/25/17 09:30 Desyrel - PO 50 mg DAILY MAO Administration ASSESSMENT/PLAN: Ms. Santos is a 77yo F with PMHx of GERD, HTN, HLD, prior CVA with residual L sided deficits who presented with 1 week of worsening LUQ/epigastric pain and elevated lipase >2000 # Acute Pancreatitis vs Constipation - As per GI, the patient's pain is inconsistent with acute pancreatitis - Unclear of why lipase is elevated, trending down - No etiology for possible pancreatitis (no stones, NL Lipid panel, no assoc drugs, no new drugs, no trauma, no alcohol) - CT abdomen shows no pancreatic pathology - GI recommends triple phase CT abd/pelvis scan thin slice through pancreas - CA 19-9 - LR @ 100cc/hr - Sodium controlled diet - Compazine PRN for nausea as QTc is >440 - Continue home PPI Omeprazole # Constipation - Though no complaints, FABIO shows stool in vault - Baclofen (pts home med) can cause constipation - D/c'd Senna - As per GI, added Miralax BID # Bladder/Pelvic Mass - Incidentally found on CT abdomen, new from 2004, 3.8cm - Asymptomatic, unrelated to current symptoms - CA-125 ordered - Spoke w/ PCP Dr. Duffy, notified, she will manage outpatient with pelvic and bladder U/S with Uro and [employer] referrals. # Renal Cysts - Known, mostly stable from prior CT in 2004 - F/u as outpatient # Left sided weakness - Residual from prior CVA - Continue Baclofen 10mg daily for L arm spasticity # Hx of HTN - Continue Amlodipine 10mg daily # Hx of Dementia - Continue Aricept 10mg daily # Hx of CAD - Continue ASA 81mg daily # Hx of HLD - well controlled - Continue Atorvastatin 40mg daily # Hx of GERD - Continue Omeprazole # Hx of Depression - Continue Mirtazapine 15mg daily - Continue Trazodone 50mg daily # FEN - Fluids: LR @ 100cc/hr - Electrolytes: No abnormalities - Nutrition: Sodium controlled diet # Prophylaxis - DVT: Heparin SQ TID - GI: Pt on omeprazole - Deconditioning: PT ordered, f/u # Dispo - Await CT abd/pelvis scan - Spoke w/ Dr. Terri Duffy who stated that the patient goes to an adult daycare program with medical care in house and transportation to and from appointments as needed. Dr. Duffy was notified about the patient's condition. She agrees with CT scan with thin slices through pancreas and pelvic mass. She agrees to followup pelvic mass with further imagnig and further referrals. She stated that patient previously had UGD (due to problems swallowing) which was within normal limits. Symptoms resolved on their own. Number to reach back is [phone] Dr. Shereen Bowles MD - PGY1 Internal Medicine Visit type - Emergency Visit Emergency Visit: No - New Patient This patient is new to me today: No - Critical Care Critical Care patient: No - Discharge Referral Referred to [facility] Med P.C.: No
[2017-06-25] MEDS: LACTATED RINGERS SOLUTION 1,000 ML IV SCH (16:22)
--- NOTE | 2017-06-25 16:26 | PN ---
Progress Note (short form) - Note Progress Note: GI Addendum: Ms. Santos's daughter (Gay) came to visit who provided additional history. She confirmed that Primance had recent EGD, but unfortunately does not know the results. She also believes that her mother had a colonoscopy, but again is not aware of the results or date of procedure. We informed her of the finding of the pelvic mass and its potential malignant nature. We also informed her the need to exclude an underlying pancreatic neoplasm, and there the need for CT with oral and IV contrast. She provided us with a cell phone number ([phone]) and passed it along to Dr. Bowles. d/w Dr. Thom Alonso MD PGY-1
--- NOTE | 2017-06-25 16:48 | PN ---
Teaching Attending Note Name of Resident: Shereen Bowles ATTENDING PHYSICIAN STATEMENT I saw and evaluated the patient. I reviewed the resident's note and discussed the case with the resident. I agree with the resident's findings and plan as documented. SUBJECTIVE: Patient says abdominal pain has moved to the epigastric area but is less severe. OBJECTIVE: Vital Signs Period Temp Pulse Resp BP Sys/Muniz Pulse Ox Last 24 Hr 97.8 F-99.4 F 59-98 16-20 114-148/66-73 97-99 HEART: S1S2, RRR LUNGS: Clear ABDOMEN: Soft, non-distended, (+) epigastric tenderness, normal BS EXTREMITIES: No edema ASSESSMENT AND PLAN: This is a 77 year old woman with a history of CAD, GERD, HTN, hyperlipidemia, CVA, dementia, depression who presented to the ER with worsening LUQ pain. 1. Abdominal pain secondary to possible acute pancreatitis, constipation, pelvic mass - Lipase improving - GI consult appreciated - Triphasic CT abdomen/pelvis ordered - CA 19-9, CA 125 ordered - Miralax started 2. Bilateral renal cysts - Outpatient renal US 3. Left hemiparesis secondary to old CVA - Continue aspirin 4. HTN - Continue Norvasc 5. Hyperlipidemia - Continue Lipitor 6. CAD - Continue aspirin 7. Dementia - Continue Aricept 8. GERD - Continue Prilosec 9. Depression - Continue Remeron, Trazodone
[2017-06-25] MEDS: ATORVASTATIN CA 40 MG TABLET (FP) PO SCH (22:41)
[2017-06-25] MEDS: POLYETHYLENE GLYCOL 3350 119 GM BTL PO SCH (22:41)
[2017-06-26] MEDS: MIRTAZAPINE 15 MG TABLET (FP) PO SCH ×2 (00:06→22:28)
[2017-06-26] MEDS: BACLOFEN 10 MG TABLET (FP) PO SCH ×4 (00:06→17:16)
[2017-06-26] MEDS: HEPARIN NA (PORCINE) 5,000 UNITS/ML 1ML VIAL SQ SCH ×3 (07:06→22:29)
[2017-06-26 08:41] LABS: C-REACTIVE PROTEIN 0.6 MG/DL (0.00-0.3)
[2017-06-26] MEDS: traZODone HCL 50 MG TABLET (FP) PO SCH (10:48)
[2017-06-26] MEDS: ASPIRIN 81 MG CHEWABLE TABLETS PO SCH (10:48)
[2017-06-26] MEDS: PANTOPRAZOLE 40 MG TABLET (FP) PO SCH (10:48)
[2017-06-26] MEDS: DONEPEZIL HCL 10 MG TABLET (FP) PO SCH (10:48)
[2017-06-26] MEDS: amLODIPine BESYLATE 10 MG TABLET (FP) PO SCH (10:48)
[2017-06-26] MEDS: POLYETHYLENE GLYCOL 3350 119 GM BTL PO SCH ×2 (10:49→22:28)
--- NOTE | 2017-06-26 11:44 | PN ---
Physical Exam: SUBJECTIVE: Patient seen and examined. She complains of constipation. OBJECTIVE: Vital Signs Period Temp Pulse Resp BP Sys/Muniz Pulse Ox Last 24 Hr 98.2 F-99.4 F 59-63 20-20 134-160/56-73 97 GENERAL: The patient is awake, alert, and fully oriented, in no acute distress. LUNGS: Breath sounds equal, clear to auscultation bilaterally, no wheezes, no crackles, no accessory muscle use. HEART: Regular rate and rhythm, S1, S2 without murmur, rub or gallop. ABDOMEN: Soft, (+) left-sided tenderness, non-distended, normoactive bowel sounds, no guarding, no rebound, no masses. EXTREMITIES: 2+ pulses, warm, well-perfused, no edema. Laboratory Results - last 24 hr 06/26/17 06:30 C-Reactive Protein 0.6 H Total Amylase 157 H D Lipase 276 Active Medications Generic Name Dose Route Start Last Admin Trade Name Freq PRN Reason Stop Dose Admin Acetaminophen 650 mg 06/24/17 16:43 06/25/17 09:30 Tylenol - PO 650 mg Q4H PRN Administration FEVER OR PAIN Amlodipine Besylate 10 mg 06/25/17 10:00 06/26/17 10:48 Norvasc - PO 10 mg DAILY MAO Administration Aspirin 81 mg 06/25/17 10:00 06/26/17 10:48 Asa - PO 81 mg DAILY MAO Administration Atorvastatin Calcium 40 mg 06/24/17 22:00 06/25/17 22:41 Lipitor - PO 40 mg HS MAO Administration Baclofen 10 mg 06/25/17 00:00 06/26/17 07:06 Lioresal - PO 10 mg Q6HPO MAO Administration Donepezil HCl 10 mg 06/25/17 10:00 06/26/17 10:48 Aricept - PO 10 mg DAILY MAO Administration Heparin Sodium (Porcine) 5,000 unit 06/25/17 06:00 06/26/17 07:06 Heparin - SQ 5,000 unit TID MAO Administration Lactated Ringer's 1,000 mls @ 100 mls/hr 06/24/17 15:00 06/25/17 16:22 Lactated Ringers Solution IV 100 mls/hr ASDIR MAO Administration Mirtazapine 15 mg 06/25/17 22:00 06/26/17 00:06 Remeron - PO 15 mg HS MAO Administration Non-Formulary Medication 15 ml 06/24/17 22:00 Mag Carb/Al Hydrox/Alginic Ac [Acid Gone Antacid Liquid] PO TID MAO Pantoprazole Sodium 40 mg 06/25/17 10:00 06/26/17 10:48 Protonix - PO 40 mg DAILY MAO Administration Polyethylene Glycol 17 gm 06/25/17 22:00 06/26/17 10:49 Miralax (For Daily Use) - PO 17 gm BID MAO Administration Prochlorperazine Edisylate 2.5 mg 06/24/17 16:43 Compazine Injection - IVPB Q4H PRN NAUSEA AND/OR VOMITING Trazodone HCl 50 mg 06/25/17 10:00 06/26/17 10:48 Desyrel - PO 50 mg DAILY MAO Administration ASSESSMENT/PLAN: This is a 77 year old woman with a history of CAD, GERD, HTN, hyperlipidemia, CVA, dementia, depression who presented to the ER with worsening LUQ pain. 1. Abdominal pain secondary to possible acute pancreatitis, constipation, pelvic mass - Lipase improved - Triphasic CT abdomen/pelvis pending - CA 19-9, CA 125 pending - Continue Miralax 2. Bilateral renal cysts - Outpatient renal US 3. Left hemiparesis secondary to old CVA - Continue aspirin 4. HTN - Continue Norvasc 5. Hyperlipidemia - Continue Lipitor 6. CAD - Continue aspirin 7. Dementia - Continue Aricept 8. GERD - Continue Protonix 9. Depression - Continue Remeron, Trazodone Visit type - Emergency Visit Emergency Visit: Yes ED Registration Date: 06/24/17 Care time: The patient presented to the Emergency Department on the above date and was hospitalized for further evaluation of their emergent condition. - New Patient This patient is new to me today: No - Critical Care Critical Care patient: No - Discharge Referral Referred to [facility] Med P.C.: No
--- NOTE | 2017-06-26 15:09 | PN ---
GI Progress Note Subjective: GASTROENTEROLOGY (FOR TRANG) STILL C/O LEFT SIDED PAIN - Objective Vital Signs: Vital Signs Temperature 97.9 F 06/26/17 10:00 Pulse Rate 59 L 06/26/17 10:00 Respiratory Rate 18 06/26/17 10:00 Blood Pressure 135/75 06/26/17 10:00 O2 Sat by Pulse Oximetry (%) 97 06/25/17 21:00 Constitutional: Well Nourished Eyes: Yes: Conjunctiva Clear HENT: Yes: Normocephalic Cardiovascular: Yes: Regular Rate and Rhythm Respiratory: Yes: WNL Gastrointestinal Inspection: Yes: WNL ...Auscultate: Yes: Normoactive Bowel Sounds ...Palpate: Yes: Tenderness (EPIGASRIC TO LEFT UPPER QUADRANT MILD TENDERNESS) Extremities: Yes: WNL Labs: CBC, BMP 06/25/17 06:00 06/25/17 06:00 - ....Imaging Cat Scan: Image Reviewed Problem List - Problems (1) Mass of pancreas Assessment/Plan: PATIENT HAS TRWO MASSES URINARY/OVARIAN AND SMALL PANCREATIC MASS AWAIT TUMOR MARKERS CONSIDER UROLOGY/FRONT OFFICE CLERK CONSULTATION SPOKE WITH DR FRANCISCO FOX MD Code(s): K86.9 - DISEASE OF PANCREAS, UNSPECIFIED (2) Pelvic mass in female Code(s): R19.00 - INTRA-ABD AND PELVIC SWELLING, MASS AND LUMP, UNSP SITE
[2017-06-26] MEDS: LACTATED RINGERS SOLUTION 1,000 ML IV SCH (17:15)
[2017-06-26] MEDS: ATORVASTATIN CA 40 MG TABLET (FP) PO SCH (22:28)
[2017-06-27] MEDS: HEPARIN NA (PORCINE) 5,000 UNITS/ML 1ML VIAL SQ SCH ×3 (06:24→21:37)
[2017-06-27] MEDS: BACLOFEN 10 MG TABLET (FP) PO SCH ×5 (06:24→23:23)
--- NOTE | 2017-06-27 09:00 | PN ---
Physical Exam: SUBJECTIVE: Patient seen and examined. She has no complaints. OBJECTIVE: Vital Signs Period Temp Pulse Resp BP Sys/Muniz Pulse Ox Last 24 Hr 97.9 F-98.2 F 59-70 18-18 124-149/75-92 97 GENERAL: The patient is awake, alert, and fully oriented, in no acute distress. LUNGS: Breath sounds equal, clear to auscultation bilaterally, no wheezes, no crackles, no accessory muscle use. HEART: Regular rate and rhythm, S1, S2 without murmur, rub or gallop. ABDOMEN: Soft, (+) left-sided tenderness, non-distended, normoactive bowel sounds, no guarding, no rebound, no masses. EXTREMITIES: 2+ pulses, warm, well-perfused, no edema. Laboratory Results - last 24 hr 06/26/17 06:30 CA 19-9 Antigen 9 CA 125 Antigen 10.0 Active Medications Generic Name Dose Route Start Last Admin Trade Name Freq PRN Reason Stop Dose Admin Acetaminophen 650 mg 06/24/17 16:43 06/25/17 09:30 Tylenol - PO 650 mg Q4H PRN Administration FEVER OR PAIN Amlodipine Besylate 10 mg 06/25/17 10:00 06/26/17 10:48 Norvasc - PO 10 mg DAILY MAO Administration Aspirin 81 mg 06/25/17 10:00 06/26/17 10:48 Asa - PO 81 mg DAILY MAO Administration Atorvastatin Calcium 40 mg 06/24/17 22:00 06/26/17 22:28 Lipitor - PO 40 mg HS MAO Administration Baclofen 10 mg 06/25/17 00:00 06/27/17 06:24 Lioresal - PO 10 mg Q6HPO MAO Administration Donepezil HCl 10 mg 06/25/17 10:00 06/26/17 10:48 Aricept - PO 10 mg DAILY MAO Administration Heparin Sodium (Porcine) 5,000 unit 06/25/17 06:00 06/27/17 06:24 Heparin - SQ 5,000 unit TID MAO Administration Lactated Ringer's 1,000 mls @ 100 mls/hr 06/24/17 15:00 06/26/17 17:15 Lactated Ringers Solution IV Not Given ASDIR MAO Mirtazapine 15 mg 06/25/17 22:00 08/26/17 22:28 Remeron - PO 15 mg HS MAO Administration Non-Formulary Medication 15 ml 06/24/17 22:00 Mag Carb/Al Hydrox/Alginic Ac [Acid Gone Antacid Liquid] PO TID MAO Pantoprazole Sodium 40 mg 06/25/17 10:00 06/26/17 10:48 Protonix - PO 40 mg DAILY MAO Administration Polyethylene Glycol 17 gm 06/25/17 22:00 06/26/17 22:28 Miralax (For Daily Use) - PO Not Given BID MAO Prochlorperazine Edisylate 2.5 mg 06/24/17 16:43 Compazine Injection - IVPB Q4H PRN NAUSEA AND/OR VOMITING Trazodone HCl 50 mg 06/25/17 10:00 06/26/17 10:48 Desyrel - PO 50 mg DAILY MAO Administration ASSESSMENT/PLAN: This is a 77 year old woman with a history of CAD, GERD, HTN, hyperlipidemia, CVA, dementia, depression who presented to the ER with worsening LUQ pain. 1. Abdominal pain secondary to possible acute pancreatitis, constipation, pelvic mass - Lipase improved - Triphasic CT abdomen/pelvis shows 2.5 cm lesion in body of pancreas, 3.4 x 3.4 x 3.0 cm soft tissue mass of urinary bladder, bilateral renal cortical cysts , no evidence of metastatic disease - CA 19-9, CA 125 normal - Continue Miralax 2. Bilateral renal cysts - Outpatient follow-up 3. Left hemiparesis secondary to old CVA - Continue aspirin 4. HTN - Continue Norvasc 5. Hyperlipidemia - Continue Lipitor 6. CAD - Continue aspirin 7. Dementia - Continue Aricept 8. GERD - Continue Protonix 9. Depression - Continue Remeron, Trazodone Visit type - Emergency Visit Emergency Visit: Yes ED Registration Date: 06/24/17 Care time: The patient presented to the Emergency Department on the above date and was hospitalized for further evaluation of their emergent condition. - New Patient This patient is new to me today: No - Critical Care Critical Care patient: No - Discharge Referral Referred to [facility] Med P.C.: No
[2017-06-27] MEDS: DONEPEZIL HCL 10 MG TABLET (FP) PO SCH (09:47)
[2017-06-27] MEDS: traZODone HCL 50 MG TABLET (FP) PO SCH (09:47)
[2017-06-27] MEDS: PANTOPRAZOLE 40 MG TABLET (FP) PO SCH (09:47)
[2017-06-27] MEDS: ASPIRIN 81 MG CHEWABLE TABLETS PO SCH (09:47)
[2017-06-27] MEDS: POLYETHYLENE GLYCOL 3350 119 GM BTL PO SCH ×2 (09:47→21:40)
[2017-06-27] MEDS: amLODIPine BESYLATE 10 MG TABLET (FP) PO SCH (09:47)
--- NOTE | 2017-06-27 13:19 | PN ---
Physical Exam: TRANSITION OF CARE This note is intended to be a transition of care note to the new medical records director team taking over the patient's care. The purpose is to provide information about the hospitalization up till today, so as to appropriately manage the patient until discharge. Home Medication List Medication Instructions Recorded Confirmed Type Amlodipine Besylate 10 mg PO DAILY 06/24/17 06/24/17 History Aspirin [ASA -] 81 mg PO DAILY 06/24/17 06/24/17 History Atorvastatin Calcium 40 mg PO HS 06/24/17 06/24/17 History Baclofen 10 mg PO Q6H 06/24/17 06/24/17 History Biotin 2 tab PO DAILY 06/24/17 06/24/17 History Donepezil HCl [Aricept -] 10 mg PO DAILY 06/24/17 06/24/17 History Ergocalciferol (Vitamin D2) 2 tab PO DAILY 06/24/17 06/24/17 History [Vitamin D2] Mag Carb/Al Hydrox/Alginic AC 15 ml PO TID 06/24/17 06/24/17 History [Acid Gone Antacid Liquid] Mirtazapine [Remeron -] 15 mg PO DAILY 06/24/17 06/24/17 History Omeprazole 40 mg PO DAILY 06/24/17 06/24/17 History Sennosides [Senna] 8.6 mg PO DAILY 06/24/17 06/24/17 History Trazodone HCl 50 mg PO DAILY 06/24/17 06/24/17 History Active Medications Generic Name Dose Route Start Last Admin Trade Name Freq PRN Reason Stop Dose Admin Acetaminophen 650 mg 06/24/17 16:43 06/25/17 09:30 Tylenol - PO 650 mg Q4H PRN Administration FEVER OR PAIN Amlodipine Besylate 10 mg 06/25/17 10:00 06/27/17 09:47 Norvasc - PO 10 mg DAILY MAO Administration Aspirin 81 mg 06/25/17 10:00 06/27/17 09:47 Asa - PO 81 mg DAILY MAO Administration Atorvastatin Calcium 40 mg 06/24/17 22:00 06/26/17 22:28 Lipitor - PO 40 mg HS MAO Administration Baclofen 10 mg 06/25/17 00:00 06/27/17 06:24 Lioresal - PO 10 mg Q6HPO MAO Administration Donepezil HCl 10 mg 06/25/17 10:00 06/27/17 09:47 Aricept - PO 10 mg DAILY MAO Administration Heparin Sodium (Porcine) 5,000 unit 06/25/17 06:00 06/27/17 06:24 Heparin - SQ 5,000 unit TID MAO Administration Mirtazapine 15 mg 06/25/17 22:00 06/26/17 22:28 Remeron - PO 15 mg HS MAO Administration Non-Formulary Medication 15 ml 06/24/17 22:00 Mag Carb/Al Hydrox/Alginic Ac [Acid Gone Antacid Liquid] PO TID MAO Pantoprazole Sodium 40 mg 06/25/17 10:00 06/27/17 09:47 Protonix - PO 40 mg DAILY MAO Administration Polyethylene Glycol 17 gm 06/25/17 22:00 06/27/17 09:47 Miralax (For Daily Use) - PO 17 gm BID MAO Administration Prochlorperazine Edisylate 2.5 mg 06/24/17 16:43 Compazine Injection - IVPB Q4H PRN NAUSEA AND/OR VOMITING Trazodone HCl 50 mg 06/25/17 10:00 06/27/17 09:47 Desyrel - PO 50 mg DAILY MAO Administration Hospital Course: Ms. Santos is a 77yo [place] F with past medical history of GERD, HTN, HLD, prior CVA with residual L sided deficits who presented with 1 week of worsening LUQ/epigastric pain, nausea, vomiting, and elevated lipase >2000. # Abdominal Pain 2/2 Acute Pancreatitis vs Constipation - The patient was started on LR at 100cc/hr, clear liquid diet with slow advances, Compazine PRN for nausea (as QTc >440). Though lipase was elevated on admission, the patient's pain was mild and inconsistent with acute pancreatitis. The patient has no clear etiology for possible pancreatitis (no stones on CT, no colicky postprandial pain, normal lipid panel, no assoc meds, no new meds, no trauma, no alcohol). Lipase levels have been trending down. A CT scan without adequate contrast revealed no pancreatic pathology. Upon review by MD, there looked to be a hypodense mass in the body of the pancreas. Gastroenterology agreed with the findings and recommended further imaging with a triple phase CT with thin slices through the pancreas, in which the radiologist noted the 2.5cm mildly enhancing hypodense mass, suggestive of neoplastic disease. There is no dilation of the pancreatic duct, splenic veins are patent. CA 19-9 is negative, which does not completely rule out neoplasm. The patient may need further imaging with endoscopic ultrasound and possible biopsy for diagnosis. # Constipation - Though the patient had no complaints of constipation, FABIO revealed hard stool in vault. The patient's home med Baclofen has constipation as side effx. As per GI, the patient's home Senna was switched to Miralax BID # Bladder Mass - A mass in the pelvis was incidentally found on the initial CT scan (new from 2004). CA-125 was ordered to rule out ovarian cancer, later negative. The triple phase CT scan with thin slices through the mass, noted that the mass was originating from the bladder, 3.4cm, enhancing, along the ventral superior wall , suggestive of neoplastic disease. The patient is asymptomatic, without lower abd pain or hematuria. It is likely unrelated to the epigastric pain. No smoking history. The patient and family are aware of these findings. MD spoke with the patient's PCP Dr. Duffy who is aware of the findings and is willing to manage this as an outpatient with further imaging and Urology referrals. # Renal Cysts - Compared to CT scan in 2005, the patient has a mix of stable bilateral renal cysts and interval development of several subcentimeter R renal cortical foci that could represent complex cysts with internal debris. Renal function is WNL. Patient will need outpatient monitoring of the cysts. # Hx of CVA - The patient has residual L sided weakness from prior CVA. We continued ASA 81mg daily and Baclofen daily. # Hx of HTN - well controlled - We continued the patient's home Amlodipine 10mg daily, and BP is well controlled # Hx of Dementia - We continued Aricept 10mg daily. We are in contact with the patient's daughter (HCP) and informing her about updates in care # Hx of HLD - We continued the patient's Atorvastatin 40mg daily. Lipid panel shows LDL at 92. # Hx of GERD - Switched home Omeprazole to pantoprazole # Hx of Depression - We continued Mirtazapine 15mg + Trazodone 50mg daily # Hx of Thyroid Mass - S/p partial thyroidectomy # Dispo - Consider further imaging for pancreatic hypodense mass, ?EUS w/ biopsy - Awaiting GI reccs - Please notify Dr. Duffy (PCP) about changes in management - [phone] - Please notify Patient's daughter Gay (HCP) about changes in management - [phone] Dr. Shereen Bowles MD - PGY1 Internal Medicine Visit type - Emergency Visit Emergency Visit: No - New Patient This patient is new to me today: No - Critical Care Critical Care patient: No
[2017-06-27] MEDS: ATORVASTATIN CA 40 MG TABLET (FP) PO SCH (21:38)
[2017-06-27] MEDS: ACETAMINOPHEN 325 MG TABLET (FP) PO PRN (21:38)
[2017-06-27] MEDS: MIRTAZAPINE 15 MG TABLET (FP) PO SCH (21:39)
[2017-06-28] MEDS: HEPARIN NA (PORCINE) 5,000 UNITS/ML 1ML VIAL SQ SCH ×2 (06:10→13:48)
[2017-06-28] MEDS: BACLOFEN 10 MG TABLET (FP) PO SCH ×3 (06:11→17:36)
[2017-06-28] MEDS: PANTOPRAZOLE 40 MG TABLET (FP) PO SCH (10:45)
[2017-06-28] MEDS: amLODIPine BESYLATE 10 MG TABLET (FP) PO SCH (10:45)
[2017-06-28] MEDS: ASPIRIN 81 MG CHEWABLE TABLETS PO SCH (10:45)
[2017-06-28] MEDS: traZODone HCL 50 MG TABLET (FP) PO SCH (10:45)
[2017-06-28] MEDS: DONEPEZIL HCL 10 MG TABLET (FP) PO SCH (10:45)
[2017-06-28] MEDS: POLYETHYLENE GLYCOL 3350 119 GM BTL PO SCH (10:46)
[2017-06-28] MEDS: ALGINIC AC PO SCH ×7 (17:00→17:18)
[2017-06-28] MEDS: AL HYDROX PO SCH ×7 (17:00→17:18)
[2017-06-28] MEDS: MAG CARB PO SCH ×7 (17:00→17:18)
[2017-06-28] MEDS: [UNRECOGNIZED DRUG - OTHER] PO SCH ×7 (17:00→17:18)
[2017-06-28 17:20] VITALS: BP 126/67; PULSE 63; TEMP 98.9
--- NOTE | 2017-06-28 17:49 | DS ---
Physical Exam: SUBJECTIVE: Patient seen and examined. She offers no new complaints today. OBJECTIVE: Vital Signs Period Temp Pulse Resp BP Sys/Muniz Pulse Ox Last 24 Hr 97.7 F-98.9 F 57-71 16-20 126-152/67-95 97-100 PHYSICAL EXAM GENERAL: The patient is awake, alert, and fully oriented, in no acute distress. HEAD: Normal with no signs of trauma. EYES: PERRL, extraocular movements intact, sclera anicteric, conjunctiva clear. ENT: Ears normal, nares patent, oropharynx clear without exudates, moist mucous membranes. NECK: Trachea midline, full range of motion, supple. LUNGS: Breath sounds equal, clear to auscultation bilaterally, no wheezes, no crackles, no accessory muscle use. HEART: Regular rate and rhythm, S1, S2 without murmur, rub or gallop. ABDOMEN: Soft, nontender, nondistended, normoactive bowel sounds, no guarding, no rebound, no hepatosplenomegaly, no masses. EXTREMITIES: 2+ pulses, warm, well-perfused, no edema. PSYCH: Normal mood, normal affect. SKIN: Warm, dry, normal turgor, no rashes or lesions noted. LABS CBC, BMP 06/25/17 06:00 06/25/17 06:00 HOSPITAL COURSE: Date of Admission:06/24/17 Date of Discharge: 06/28/17 Ms. Santos is a 77 yo [place] female w/ HTN, HLD, GERD, prior CVA who presented to the ER with 1 week of worsening LUQ/epigastric pain and was initially being treated for pancreatitis. Upon further testing, Triple phase CT scan images revealed 3.5x3.5x3cm bladder mass and a 2.5cm pancreatic mass both suggestive of neoplasm. Pancreatic tumor markers were negative ([id number] CA125). Patient was recommended by Dr. Tomas to follow-up with Dr. Ramsey Rondon, director of Pancreas center at [place] for further evaluation of the pancreatic mass. Patient also recommended to follow up with her primary for renal cysts and to see a urologist in their liking for the bladder mass. Minutes to complete discharge: 45 Discharge Summary Reason For Visit: PANCREATITIS Current Active Problems Constipated (Acute) Pancreatitis (Acute) Mass of pancreas (Chronic) Pelvic mass in female (Chronic) Condition: Stable - Instructions Diet, Activity, Other Instructions: Activity as tolerated Low sodium diet May take shower Must F/u with your medical doctor Referrals: Efrain Bucio [Primary Care Provider] - - Home Medications Comprehensive Discharge Medication List: Ambulatory Orders Amlodipine Besylate 10 mg PO DAILY 06/24/17 Aspirin [ASA -] 81 mg PO DAILY 06/24/17 Atorvastatin Calcium 40 mg PO HS 06/24/17 Baclofen 10 mg PO Q6H 06/24/17 Biotin 2 tab PO DAILY 06/24/17 Donepezil HCl [Aricept -] 10 mg PO DAILY 06/24/17 Ergocalciferol (Vitamin D2) [Vitamin D2] 2 tab PO DAILY 06/24/17 Mag Carb/Al Hydrox/Alginic AC [Acid Gone Antacid Liquid] 15 ml PO TID 06/24/17 Mirtazapine [Remeron -] 15 mg PO DAILY 06/24/17 Omeprazole 40 mg PO DAILY 06/24/17 Sennosides [Senna] 8.6 mg PO DAILY 06/24/17 Trazodone HCl 50 mg PO DAILY 06/24/17 This patient is new to me today: Yes Date on this admission: 06/28/17 Emergency Visit: Yes ED Registration Date: 06/24/17 Care time: The patient presented to the Emergency Department on the above date and was hospitalized for further evaluation of their emergent condition. Critical Care patient: No - Discharge Referral Referred to [facility] No
--- NOTE | 2017-06-28 17:59 | PN ---
Teaching Attending Note Name of Resident: Kirk Mcgregor ATTENDING PHYSICIAN STATEMENT I saw and evaluated the patient. I reviewed the resident's note and discussed the case with the resident. I agree with the resident's findings and plan as documented. SUBJECTIVE: no fever or chills. Abd pain has improved , but still has LUQ pain ( minimal ) . no N/V , tolerated diet. OBJECTIVE: NAD , awake and alert Lungs; CTAB Ext : no edema Abd : soft, TTP in LUQ , no rebound tenderness or guarding. nl bS CV: RRR. Neuro : no facial droop. EOMI. tongue at mid line . Strength 5/5 in RUE, RLE proximal and distal. L shoulder abduction 0, L biceps 3/5. L hip 4/5 , L knee flexion and extension 5/5 . L dorsiflexion 3-4 /5. L plantar flexion 5/5 ASSESSMENT AND PLAN: 77 y/o lady with H/O GERD , CVA with L residual weakness,HLP, CAD and other medical problems who presetned with abd pain she was found to have possible pancreatitis . 1- Abd pain, could be due to possible acute pancreatitis. No abd pain much improved and can tolerate her diet . CT with IV contrast ( triple phase) with pancreatic mass , for which she needs f/j u as outpt at a tertiary center for endoscopic US guided Bx . Case was d/w Dr. Dunn. Case d/w Dr. Duffy her PCP and updated. 2- Bladder mass, suspicious for malignancy. f/u with uro as otupt . spoke to PCP and updated her . no hematuria . 3- b/l ewnal cysts , need out pt follow up with CT scan 4- HTN: Norvasc 5- h/o CVA and CAD : cont ASA , lipitor , and norvasc dispo : dc . family, PCP updated .
--- NOTE | 2017-06-28 19:06 | EKG ---
Test Reason : Blood Pressure : / mmHG Vent. Rate : 070 BPM Atrial Rate : 070 BPM P-R Int : 202 ms QRS Dur : 102 ms QT Int : 426 ms P-R-T Axes : 038 -18 012 degrees QTc Int : 460 ms NORMAL SINUS RHYTHM NORMAL ECG WHEN COMPARED WITH ECG OF 24-JUN-2017 10:32, NO SIGNIFICANT CHANGE WAS FOUND Confirmed by MADIE PEACE MD ([id number]) on 06/28/2017 7:05:57 PM Referred By: Confirmed By:MADIE PEACE MD
== END 2017-06-28 19:46 | disposition home or self-care (01) | DRG 439 ==
LOC: JER 10:24 → JERBED 16:01 → J8W 17:55
PROVIDERS: ADMIT Internal Medicine; ATTEND Internal Medicine
DX: K85.90 Acute pancreatitis without necrosis or infection, unspecified (principal); I69.354 Hemiplegia and hemiparesis following cerebral infarction affecting left non-dominant side; I10 Essential (primary) hypertension; E78.5 Hyperlipidemia, unspecified; K21.9 Gastro-esophageal reflux disease without esophagitis; F03.90 Unspecified dementia, unspecified severity, without behavioral disturbance, psychotic disturbance, mood disturbance, and anxiety; N28.1 Cyst of kidney, acquired; I25.10 Atherosclerotic heart disease of native coronary artery without angina pectoris; F32.9 Major depressive disorder, single episode, unspecified; K59.00 Constipation, unspecified; R19.09 Other intra-abdominal and pelvic swelling, mass and lump; N32.9 Bladder disorder, unspecified
CPT/HCPCS: 36415; 74177-TC; 74178-TC; 80053; 80061; 81003; 81015; 82150; 82553; 83690; 83721; 84484; 85025; 85027; 86140; 86301; 86304; 87086; 93005; 93010; 97116-GP; 97161-GP; 99284-25; J0475; J1644

== ENCOUNTER 2017-11-18 20:02 | Emergency (ER) | payer OTHER ==
--- NOTE | 2017-11-18 20:18 | PDOC ---
Rapid Medical Evaluation Medical Evaluation: Allergies Allergy/AdvReac Type Severity Reaction Status Date / Time No Known Allergies Allergy Verified 06/24/17 10:34 11/18/17 20:13 I have performed a brief in person evaluation of this patient. The patient presents with chief complaint of : pain with urination and urinary discomfort rectal discomfort. Pertinent PE findings: hull to leg bag I have ordered the following: ua urine culture The patient will proceed to the ER for further evaluation.
[2017-11-18 20:22] VITALS: BP 139/63; PULSE 89; TEMP 99.2; BMI 26.6
[2017-11-18 21:11] LABS: URINE APPEARANCE SLCLOUDY; URINE BILIRUBIN NEGATIVE (NEGATIVE); URINE BLOOD 2+ (NEGATIVE); URINE COLOR STRAW; URINE GLUCOSE (UA) NEGATIVE (NEGATIVE); URINE KETONE NEGATIVE (NEGATIVE); URINE NITRITE POSITIVE (NEGATIVE); URINE UROBILINOGEN NEGATIVE mg/dL (0.2-1.0)
[2017-11-18 21:26] LABS: URINE PROTEIN 1+ (NEGATIVE)
[2017-11-18 21:27] LABS: URINE LEUK ESTERASE 3+ (NEGATIVE)
[2017-11-18 21:46] LABS: EPI CELLS RARE /HPF (FEW); URINE BACTERIA MODERATE /hpf (NONE SEEN); URINE MUCUS RARE
--- NOTE | 2017-11-21 08:02 | PDOC ---
Patient Follow-up (Call Back) - Post ED Follow - Up Disposition at time of original discharge: [facility] Reason for Call Back: Abnwl. Microbiology Signs/Symptoms Improved: Yes - Disposition Additional Instructions/Notes: The patient eloped [facility] before getting treatment. She went to [facility] and states she was given antibiotics and feels better.
== END 2017-11-18 23:37 | disposition left against medical advice (07) ==
LOC: JER 20:02
DX: T83.84XA Pain due to genitourinary prosthetic devices, implants and grafts, initial encounter (principal)
CPT/HCPCS: 81003; 81015; 87086; 87186; 99281-25

== ENCOUNTER 2021-02-06 09:09 | Emergency (ER) | payer OTHER ==
[2021-02-06 09:13] VITALS: BMI 28.1
[2021-02-06 10:06] LABS: EOS % 0.1 % (0-4.5); HEMATOCRIT 38.6 % (32.4-45.2); HEMOGLOBIN 13.1 GM/dL (10.7-15.3); LYMPH % 13.3 % (8-40); MCH 28.2 pg (25.7-33.7); MCHC 33.9 g/dl (32.0-36.0); MEAN CELL VOLUME 83.4 fl (80-96); MEAN PLT VOLUME 8.2 fl (7.5-11.1); MONO % 6.2 % (3.8-10.2); NEUT % 79.4 % (42.8-82.8); PLATELET COUNT 308 K/MM3 (134-434); RBC 4.63 M/mm3 (3.60-5.2); RDW 14.5 % (11.6-15.6)
[2021-02-06 10:29] LABS: CHLORIDE 104 mmol/L (98-107); SODIUM 138 mmol/L (136-145)
[2021-02-06 10:32] LABS: CALCIUM 10.4 mg/dL (8.5-10.1)
[2021-02-06 10:33] LABS: ANION GAP 7 MMOL/L (8-16); CO2 28 mmol/L (21-32); GLUCOSE,RANDOM 111 mg/dL (74-106); MAGNESIUM 2.2 mg/dL (1.8-2.4)
[2021-02-06 10:34] LABS: SGOT/AST 33 U/L (15-37)
[2021-02-06 10:36] LABS: BILIRUBIN,TOTAL 0.6 mg/dL (0.2-1); TOT PROT 7.9 g/dl (6.4-8.2)
[2021-02-06 10:37] LABS: ALK PHOS 113 U/L (45-117)
[2021-02-06 10:39] LABS: SGPT/ALT 23 U/L (13-61)
[2021-02-06] MEDS ORDERED: LACTATED RINGERS SOLUTION 1000 ML INFUS.BAG IV ONE (10:46)
[2021-02-06] MEDS ORDERED: ACETAMINOPHEN 325 MG TABLET (FP) PO ONE (10:46)
[2021-02-06] MEDS ORDERED: ACETAMINOPHEN 325 MG TABLET (FP) ONE (11:18)
[2021-02-06 11:57] LABS: EPI CELLS 29 /uL (0-25.1); HYALINE CASTS 3 /uL (0-3.1); URINE APPEARANCE CLEAR; URINE BACTERIA 65 /uL (0-1359); URINE BILIRUBIN NEGATIVE (NEGATIVE); URINE COLOR YELLOW; URINE GLUCOSE (UA) NEGATIVE (NEGATIVE); URINE KETONE 1+ (NEGATIVE); URINE LEUK ESTERASE NEGATIVE (NEGATIVE); URINE NITRITE NEGATIVE (NEGATIVE); URINE PROTEIN 1+ (NEGATIVE); URINE RBC 21 /uL (0-23.9); URINE UROBILINOGEN 0.2 mg/dL (0.2-1.0); URINE WBC 9 /uL (0-25.8)
[2021-02-06 13:37] VITALS: BP 130/78; PULSE 82; TEMP 98.3
== END 2021-02-06 14:11 | disposition home or self-care (01) ==
LOC: JER 09:09
DX: M25.512 Pain in left shoulder (principal); M25.552 Pain in left hip; W01.0XXA Fall on same level from slipping, tripping and stumbling without subsequent striking against object, initial encounter
CPT/HCPCS: 36415; 70450-TC; 71045-TC-FY; 72125-TC; 73030-TC-LT-FY; 73523-TC-FY; 80053; 81003; 82550; 82553; 83605; 83735; 84484; 85025; 87077; 87086; 93005; 93010; 99285-25

== ENCOUNTER 2022-02-13 11:57 | Emergency (ER) | payer OTHER ==
[2022-02-13] MEDS ORDERED: FAMOTIDINE 20 MG/50 ML IVPB 20 MG/50 ML MG IVPB ONE (12:31)
[2022-02-13] MEDS ORDERED: ONDANSETRON 4 MG/2 ML VIAL IVPB ONE (12:31)
[2022-02-13] MEDS ORDERED: MAG HYDROX/AL HYDROX/SIMETH 30 ML UNIT-DOSE CUP PO ONE (12:31)
[2022-02-13] MEDS ORDERED: ACETAMINOPHEN 1000 MG/100 ML BAG IVPB ONE (12:31)
[2022-02-13] MEDS ORDERED: PANTOPRAZOLE SODIUM 40 MG VIAL IVPUSH ONE (12:31)
[2022-02-13 12:40] VITALS: TEMP 98.1; BMI 26.6
[2022-02-13] MEDS ORDERED: ACETAMINOPHEN INJECTION 100 ML IVPB ONE (13:00)
[2022-02-13] MEDS ORDERED: ONDANSETRON 4 MG/2 ML VIAL ONE (13:00)
[2022-02-13] MEDS ORDERED: PANTOPRAZOLE SODIUM 40 MG VIAL ONE (13:00)
[2022-02-13] MEDS ORDERED: FAMOTIDINE 10 MG/ML VIAL IVPB ONE (13:00)
[2022-02-13 13:01] LABS: BASO % 0.4 % (0-2.0); HEMATOCRIT 40.6 % (32.4-45.2); HEMOGLOBIN 13.4 GM/dL (10.7-15.3); LYMPH % 11.3 % (8-40); MCH 27.2 pg (25.7-33.7); MCHC 32.9 g/dl (32.0-36.0); MEAN CELL VOLUME 82.8 fl (80-96); MEAN PLT VOLUME 8.3 fl (7.5-11.1); MONO % 4.8 % (3.8-10.2); NEUT % 83.5 % (42.8-82.8); PLATELET COUNT 257 10^3/uL (134-434); RBC 4.91 M/mm3 (3.60-5.2); RDW 15.7 % (11.6-15.6); WHITE BLOOD COUNT 7.3 K/mm3 (4.0-10.0)
[2022-02-13] MEDS ORDERED: MAG HYDROX/AL HYDROX/SIMETH 30 ML UNIT-DOSE CUP ONE (13:01)
[2022-02-13 13:07] LABS: INR 1.18 (0.83-1.09); PROTHROMBIN TIME (PATIENT) 13.6 SEC (9.7-13.0)
[2022-02-13 13:10] LABS: ACTIVATED PTT 29.3 SECONDS (25.2-36.5)
[2022-02-13 13:20] LABS: CHLORIDE 105 mmol/L (98-107); SODIUM 129 mmol/L (136-145)
[2022-02-13 13:24] LABS: ALBUMIN 3.7 g/dl (3.4-5.0); BLOOD UREA NITROGEN 33.2 mg/dL (7-18); CALCIUM 8.5 mg/dL (8.5-10.1); CO2 20 mmol/L (21-32); GLUCOSE,RANDOM 96 mg/dL (74-106); MAGNESIUM 2.6 mg/dL (1.8-2.4)
[2022-02-13 13:25] LABS: LIPASE 402 U/L (73-393)
[2022-02-13 13:27] LABS: CREATININE 1.7 mg/dL (0.55-1.3); PHOSPHOROUS 4.6 mg/dL (2.5-4.9)
[2022-02-13 13:28] LABS: BILIRUBIN,TOTAL 0.8 mg/dL (0.2-1)
[2022-02-13 13:29] LABS: TOT PROT 8.9 g/dl (6.4-8.2)
[2022-02-13 13:30] LABS: ALK PHOS 86 U/L (45-117)
[2022-02-13 13:37] LABS: ANION GAP 3 MMOL/L (8-16); SGOT/AST 116 U/L (15-37); SGPT/ALT 40 U/L (13-61)
[2022-02-13] MEDS ORDERED: SODIUM CHLORIDE 0.9% 500 ML INFUS.BAG IV ONE (13:38)
[2022-02-13 14:23] LABS: CALCIUM 8.9 mg/dL (8.5-10.1)
[2022-02-13 14:24] LABS: BLOOD UREA NITROGEN 35.1 mg/dL (7-18)
[2022-02-13 14:30] LABS: CREATININE 1.6 mg/dL (0.55-1.3)
[2022-02-13] MEDS ORDERED: LACTATED RINGERS SOLUTION 1000 ML INFUS.BAG IV ONE (16:13)
[2022-02-13 16:17] LABS: EPI CELLS >36 /uL (0-25.1); HYALINE CASTS 13 /uL (0-3.1); URINE APPEARANCE CLOUDY; URINE BACTERIA 5371 /uL (0-1359); URINE BILIRUBIN NEGATIVE (NEGATIVE); URINE COLOR DK YELLOW; URINE GLUCOSE (UA) NEGATIVE (NEGATIVE); URINE KETONE TRACE (NEGATIVE); URINE LEUK ESTERASE NEGATIVE (NEGATIVE); URINE NITRITE NEGATIVE (NEGATIVE); URINE PROTEIN 1+ (NEGATIVE); URINE UROBILINOGEN 0.2 mg/dL (0.2-1.0); URINE WBC 35 /uL (0-25.8)
[2022-02-13 16:19] LABS: URINE RBC 28.5 /uL (0-23.9)
[2022-02-13 16:20] LABS: YEAST NONE SEEN (NEGATIVE)
[2022-02-13 20:41] VITALS: BP 112/62; PULSE 82
[2022-02-14 10:07] LABS: SARS-CoV-2 NAA Not Detected (Not Detected)
== END 2022-02-13 20:40 | disposition home or self-care (01) ==
LOC: JER 11:57
PROC: 3E033GC Introduction of Other Therapeutic Substance into Peripheral Vein, Percutaneous Approach (ICD-10-PCS; principal; 2022-02-13)
DX: R10.84 Generalized abdominal pain (principal); R11.2 Nausea with vomiting, unspecified; R19.7 Diarrhea, unspecified
CPT/HCPCS: 36415; 71045-TC-FY; 74177-TC; 76705-TC; 80048; 80053; 81003; 83605; 83690; 83735; 84100; 84484; 85025; 85610; 85730; 87086; 87186; 87804; 87807; 93005; 93010; 96365; 96375; 99285-25; C9803-CS; U0003; U0005

== ENCOUNTER 2022-04-30 14:19 | Inpatient (IN) | payer OTHER ==
[2022-04-30] MEDS ORDERED: ACETAMINOPHEN 1000 MG/100 ML BAG IVPB ONE (15:19)
[2022-04-30] MEDS ORDERED: SODIUM CHLORIDE 0.9% 500 ML INFUS.BAG IV ONE ×2 (15:36→16:58)
[2022-04-30] MEDS ORDERED: CEFTRIAXONE 1 GM in DEXTROSE 5%-WATER - 50 ML IVPB ONE (16:58)
[2022-04-30] MEDS ORDERED: ACETAMINOPHEN INJECTION 100 ML IVPB ONE (16:59)
[2022-04-30 17:23] LABS: EOS % 0.9 % (0-4.5); HEMATOCRIT 37.2 % (32.4-45.2); HEMOGLOBIN 12.4 GM/dL (10.7-15.3); LYMPH % 23.3 % (8-40); MCH 27.2 pg (25.7-33.7); MCHC 33.4 g/dl (32.0-36.0); MEAN CELL VOLUME 81.5 fl (80-96); MEAN PLT VOLUME 8.1 fl (7.5-11.1); MONO % 6.7 % (3.8-10.2); NEUT % 68.1 % (42.8-82.8); PLATELET COUNT 324 10^3/uL (134-434); RBC 4.56 M/mm3 (3.60-5.2); RDW 15.1 % (11.6-15.6); WHITE BLOOD COUNT 10.8 K/mm3 (4.0-10.0)
[2022-04-30 17:44] LABS: CALCIUM 9.7 mg/dL (8.5-10.1)
[2022-04-30 17:45] LABS: ALBUMIN 3.9 g/dl (3.4-5.0); BLOOD UREA NITROGEN 16.7 mg/dL (7-18)
[2022-04-30 17:49] LABS: TOT PROT 8.1 g/dl (6.4-8.2)
[2022-04-30 17:50] LABS: BILIRUBIN,TOTAL 0.5 mg/dL (0.2-1)
[2022-04-30] MEDS ORDERED: CEFTRIAXONE 1 GM/50 ML BAG ONE (18:01)
[2022-04-30] MEDS ORDERED: LACTATED RINGERS SOLUTION 1,000 ML/1,000 ML INFUS.BAG IV SCH (21:15)
[2022-04-30] MEDS ORDERED: ATORVASTATIN CA 40 MG TABLET (FP) ONE (22:24)
[2022-04-30] MEDS: ATORVASTATIN CA 40 MG TABLET (FP) PO SCH (22:32)
[2022-05-01 06:56] LABS: BASO % 0.7 % (0-2.0); HEMATOCRIT 36.2 % (32.4-45.2); HEMOGLOBIN 11.9 GM/dL (10.7-15.3); LYMPH % 25.8 % (8-40); MCH 27.1 pg (25.7-33.7); MCHC 32.9 g/dl (32.0-36.0); MEAN CELL VOLUME 82.6 fl (80-96); MONO % 7.9 % (3.8-10.2); NEUT % 62.6 % (42.8-82.8); PLATELET COUNT 290 10^3/uL (134-434); RBC 4.39 M/mm3 (3.60-5.2); RDW 14.8 % (11.6-15.6); WHITE BLOOD COUNT 8.3 K/mm3 (4.0-10.0)
[2022-05-01 07:05] LABS: CALCIUM 8.9 mg/dL (8.5-10.1)
[2022-05-01 07:06] LABS: ALBUMIN 3.3 g/dl (3.4-5.0); BLOOD UREA NITROGEN 13.5 mg/dL (7-18); MAGNESIUM 2.2 mg/dL (1.8-2.4)
[2022-05-01 07:08] LABS: CREATININE 0.9 mg/dL (0.55-1.3)
[2022-05-01 07:09] LABS: PHOSPHOROUS 3.5 mg/dL (2.5-4.9)
[2022-05-01 07:10] LABS: BILIRUBIN,TOTAL 0.8 mg/dL (0.2-1); TOT PROT 6.7 g/dl (6.4-8.2)
[2022-05-01] MEDS ORDERED: LOSARTAN POTASSIUM 50 MG TABLET ONE (07:56)
[2022-05-01] MEDS ORDERED: PANTOPRAZOLE 20 MG TABLET PO ONE (07:56)
[2022-05-01] MEDS ORDERED: metoPROLOL SUCCINATE 25 MG TAB.SR.24H (FP) PO ONE (07:56)
[2022-05-01] MEDS ORDERED: ARIPiprazole 5 MG TABLET ONE (07:57)
[2022-05-01] MEDS ORDERED: ENOXAPARIN NA (PORCINE) 40 MG/0.4 ML DISP.SYRIN SQ ONE (07:57)
[2022-05-01] MEDS ORDERED: ASPIRIN 81 MG CHEWABLE TABLETS ONE (07:57)
[2022-05-01] MEDS: ENOXAPARIN NA (PORCINE) 40 MG/0.4 ML DISP.SYRIN SQ SCH (09:08)
[2022-05-01] MEDS: DONEPEZIL HCL 10 MG TABLET (FP) PO SCH (09:08)
[2022-05-01] MEDS: ASPIRIN 81 MG CHEWABLE TABLETS PO SCH (09:08)
[2022-05-01] MEDS: LOSARTAN POTASSIUM 50 MG TABLET PO SCH (09:08)
[2022-05-01] MEDS: metoPROLOL SUCCINATE 25 MG TAB.SR.24H (FP) PO SCH (09:09)
[2022-05-01] MEDS: amLODIPine BESYLATE 5 MG TABLET (FP) PO SCH (09:09)
[2022-05-01] MEDS ORDERED: PANTOPRAZOLE 20 MG TABLET PO SCH (10:00)
[2022-05-01] MEDS ORDERED: VANCOMYCIN 250 MG/5 ML ORAL SOLUTION PO SCH (12:00)
[2022-05-01] MEDS: LACTATED RINGERS SOLUTION 1,000 ML/1,000 ML INFUS.BAG IV SCH (13:55)
[2022-05-01 15:25] VITALS: BMI 27.1
[2022-05-01 16:33] LABS: EPI CELLS 8 /uL (0-25.1); HYALINE CASTS 0 /uL (0-3.1); URINE APPEARANCE CLEAR; URINE BACTERIA 68 /uL (0-1359); URINE BILIRUBIN NEGATIVE (NEGATIVE); URINE COLOR YELLOW; URINE GLUCOSE (UA) NEGATIVE (NEGATIVE); URINE KETONE NEGATIVE (NEGATIVE); URINE LEUK ESTERASE TRACE (NEGATIVE); URINE NITRITE NEGATIVE (NEGATIVE); URINE PROTEIN NEGATIVE (NEGATIVE); URINE RBC 14 /uL (0-23.9); URINE UROBILINOGEN 0.2 mg/dL (0.2-1.0); URINE WBC 10 /uL (0-25.8)
[2022-05-01] MEDS ORDERED: DEXTROSE 5%-WATER 100 ML IVPB ONE (16:36)
[2022-05-01] MEDS: CEFTRIAXONE 2 GM in DEXTROSE 5%-WATER 2 GM/100 ML BAG IVPB SCH (16:43)
[2022-05-01] MEDS: VANCOMYCIN 250 MG/5 ML ORAL SOLUTION PO SCH (18:27)
[2022-05-01] MEDS: ATORVASTATIN CA 40 MG TABLET (FP) PO SCH (21:56)
[2022-05-02] MEDS: VANCOMYCIN 250 MG/5 ML ORAL SOLUTION PO SCH ×4 (00:35→17:29)
[2022-05-02 09:46] LABS: BASO % 0.6 % (0-2.0); HEMATOCRIT 35.4 % (32.4-45.2); HEMOGLOBIN 11.7 GM/dL (10.7-15.3); LYMPH % 24.1 % (8-40); MCH 26.9 pg (25.7-33.7); MCHC 33.1 g/dl (32.0-36.0); MEAN CELL VOLUME 81.4 fl (80-96); MEAN PLT VOLUME 8.4 fl (7.5-11.1); MONO % 9.6 % (3.8-10.2); NEUT % 63.7 % (42.8-82.8); PLATELET COUNT 315 10^3/uL (134-434); RBC 4.34 M/mm3 (3.60-5.2); RDW 14.7 % (11.6-15.6); WHITE BLOOD COUNT 6.7 K/mm3 (4.0-10.0)
[2022-05-02] MEDS ORDERED: PANTOPRAZOLE SODIUM 40 MG VIAL IVPUSH SCH (10:00)
[2022-05-02 10:25] LABS: ALBUMIN 3.3 g/dl (3.4-5.0)
[2022-05-02 10:26] LABS: CALCIUM 9.1 mg/dL (8.5-10.1)
[2022-05-02 10:27] LABS: MAGNESIUM 2.1 mg/dL (1.8-2.4)
[2022-05-02 10:28] LABS: CREATININE 0.7 mg/dL (0.55-1.3)
[2022-05-02 10:30] LABS: BILIRUBIN,TOTAL 0.5 mg/dL (0.2-1); TOT PROT 6.9 g/dl (6.4-8.2)
[2022-05-02] MEDS ORDERED: DEXTROSE 5%-WATER 100 ML IVPB ONE (11:40)
[2022-05-02] MEDS: ASPIRIN 81 MG CHEWABLE TABLETS PO SCH (11:48)
[2022-05-02] MEDS: LACTOBACILLUS ACIDOPHILUS 1 TABLET PO SCH (11:48)
[2022-05-02] MEDS: metoPROLOL SUCCINATE 25 MG TAB.SR.24H (FP) PO SCH (11:49)
[2022-05-02] MEDS: DONEPEZIL HCL 10 MG TABLET (FP) PO SCH (11:49)
[2022-05-02] MEDS: amLODIPine BESYLATE 5 MG TABLET (FP) PO SCH (11:49)
[2022-05-02] MEDS: LOSARTAN POTASSIUM 50 MG TABLET PO SCH (11:49)
[2022-05-02] MEDS: FAMOTIDINE 20 MG TABLET PO SCH (11:49)
[2022-05-02] MEDS: ENOXAPARIN NA (PORCINE) 40 MG/0.4 ML DISP.SYRIN SQ SCH (11:49)
[2022-05-02] MEDS: CEFTRIAXONE 2 GM in DEXTROSE 5%-WATER 2 GM/100 ML BAG IVPB SCH (11:50)
[2022-05-02] MEDS: LACTATED RINGERS SOLUTION 1,000 ML/1,000 ML INFUS.BAG IV SCH (16:01)
[2022-05-02] MEDS: MELATONIN 5 MG TABLETS PO PRN (22:34)
[2022-05-02] MEDS: ATORVASTATIN CA 40 MG TABLET (FP) PO SCH (22:34)
[2022-05-03] MEDS: VANCOMYCIN 250 MG/5 ML ORAL SOLUTION PO SCH ×5 (00:10→23:38)
[2022-05-03] MEDS: ACETAMINOPHEN 1000 MG/100 ML BAG IVPB PRN (07:08)
[2022-05-03] MEDS ORDERED: DEXTROSE 5%-WATER 100 ML IVPB ONE (10:32)
[2022-05-03] MEDS: CEFTRIAXONE 2 GM in DEXTROSE 5%-WATER 2 GM/100 ML BAG IVPB SCH (10:35)
[2022-05-03] MEDS: ENOXAPARIN NA (PORCINE) 40 MG/0.4 ML DISP.SYRIN SQ SCH (10:36)
[2022-05-03] MEDS: metoPROLOL SUCCINATE 25 MG TAB.SR.24H (FP) PO SCH (10:36)
[2022-05-03] MEDS: LACTATED RINGERS SOLUTION 1,000 ML/1,000 ML INFUS.BAG IV SCH ×2 (10:36→19:13)
[2022-05-03] MEDS: amLODIPine BESYLATE 5 MG TABLET (FP) PO SCH (10:36)
[2022-05-03] MEDS: DONEPEZIL HCL 10 MG TABLET (FP) PO SCH (10:36)
[2022-05-03] MEDS: LOSARTAN POTASSIUM 50 MG TABLET PO SCH (10:36)
[2022-05-03] MEDS: ASPIRIN 81 MG CHEWABLE TABLETS PO SCH (10:37)
[2022-05-03] MEDS: LACTOBACILLUS ACIDOPHILUS 1 TABLET PO SCH (10:37)
[2022-05-03] MEDS: FAMOTIDINE 20 MG TABLET PO SCH (10:37)
[2022-05-03] MEDS: ATORVASTATIN CA 40 MG TABLET (FP) PO SCH (22:41)
[2022-05-04] MEDS: LACTATED RINGERS SOLUTION 1,000 ML/1,000 ML INFUS.BAG IV SCH ×2 (04:25→14:59)
[2022-05-04] MEDS: VANCOMYCIN 250 MG/5 ML ORAL SOLUTION PO SCH ×4 (05:46→23:17)
[2022-05-04 10:21] LABS: BASO % 0.8 % (0-2.0); EOS % 2.6 % (0-4.5); HEMATOCRIT 35.1 % (32.4-45.2); HEMOGLOBIN 11.7 GM/dL (10.7-15.3); LYMPH % 25.8 % (8-40); MCHC 33.4 g/dl (32.0-36.0); MEAN CELL VOLUME 80.9 fl (80-96); MEAN PLT VOLUME 8.3 fl (7.5-11.1); NEUT % 62.8 % (42.8-82.8); PLATELET COUNT 305 10^3/uL (134-434); RBC 4.33 M/mm3 (3.60-5.2); RDW 14.6 % (11.6-15.6); WHITE BLOOD COUNT 5.5 K/mm3 (4.0-10.0)
[2022-05-04] MEDS ORDERED: DEXTROSE 5%-WATER 100 ML IVPB ONE (10:29)
[2022-05-04] MEDS: DONEPEZIL HCL 10 MG TABLET (FP) PO SCH (10:33)
[2022-05-04] MEDS: ASPIRIN 81 MG CHEWABLE TABLETS PO SCH (10:33)
[2022-05-04] MEDS: LOSARTAN POTASSIUM 25 MG TABLET PO SCH (10:34)
[2022-05-04] MEDS: LACTOBACILLUS ACIDOPHILUS 1 TABLET PO SCH (10:34)
[2022-05-04] MEDS: ENOXAPARIN NA (PORCINE) 40 MG/0.4 ML DISP.SYRIN SQ SCH (10:35)
[2022-05-04] MEDS: metoPROLOL SUCCINATE 25 MG TAB.SR.24H (FP) PO SCH (10:35)
[2022-05-04] MEDS: CEFTRIAXONE 2 GM in DEXTROSE 5%-WATER 2 GM/100 ML BAG IVPB SCH (10:38)
[2022-05-04] MEDS: FAMOTIDINE 20 MG TABLET PO SCH (10:46)
[2022-05-04 11:02] LABS: BLOOD UREA NITROGEN 6.7 mg/dL (7-18)
[2022-05-04 11:03] LABS: ALBUMIN 3.2 g/dl (3.4-5.0); CALCIUM 9.2 mg/dL (8.5-10.1)
[2022-05-04 11:06] LABS: CREATININE 0.8 mg/dL (0.55-1.3)
[2022-05-04 11:07] LABS: BILIRUBIN,TOTAL 0.5 mg/dL (0.2-1); TOT PROT 6.8 g/dl (6.4-8.2)
[2022-05-04] MEDS: ATORVASTATIN CA 40 MG TABLET (FP) PO SCH (22:01)
[2022-05-04] MEDS: MELATONIN 5 MG TABLETS PO PRN (22:01)
[2022-05-05] MEDS: LACTATED RINGERS SOLUTION 1,000 ML/1,000 ML INFUS.BAG IV SCH ×2 (01:28→17:24)
[2022-05-05] MEDS: VANCOMYCIN 250 MG/5 ML ORAL SOLUTION PO SCH ×3 (05:41→17:22)
[2022-05-05 09:08] LABS: BASO % 0.9 % (0-2.0); EOS % 4.4 % (0-4.5); HEMATOCRIT 35.9 % (32.4-45.2); HEMOGLOBIN 12.2 GM/dL (10.7-15.3); LYMPH % 31.2 % (8-40); MCH 27.6 pg (25.7-33.7); MEAN CELL VOLUME 81.2 fl (80-96); MEAN PLT VOLUME 8.4 fl (7.5-11.1); MONO % 8.7 % (3.8-10.2); NEUT % 54.8 % (42.8-82.8); PLATELET COUNT 315 10^3/uL (134-434); RBC 4.42 M/mm3 (3.60-5.2); RDW 14.9 % (11.6-15.6); WHITE BLOOD COUNT 5.7 K/mm3 (4.0-10.0)
[2022-05-05] MEDS ORDERED: DEXTROSE 5%-WATER 100 ML IVPB ONE (09:16)
[2022-05-05] MEDS: ENOXAPARIN NA (PORCINE) 40 MG/0.4 ML DISP.SYRIN SQ SCH (09:25)
[2022-05-05] MEDS: CEFTRIAXONE 2 GM in DEXTROSE 5%-WATER 2 GM/100 ML BAG IVPB SCH (09:25)
[2022-05-05] MEDS: ASPIRIN 81 MG CHEWABLE TABLETS PO SCH (09:25)
[2022-05-05] MEDS: DONEPEZIL HCL 10 MG TABLET (FP) PO SCH (09:26)
[2022-05-05] MEDS: LACTOBACILLUS ACIDOPHILUS 1 TABLET PO SCH (09:26)
[2022-05-05] MEDS: FAMOTIDINE 20 MG TABLET PO SCH (09:26)
[2022-05-05] MEDS: metoPROLOL SUCCINATE 25 MG TAB.SR.24H (FP) PO SCH (09:26)
[2022-05-05] MEDS: LOSARTAN POTASSIUM 25 MG TABLET PO SCH (09:26)
[2022-05-05 09:33] LABS: CALCIUM 9.3 mg/dL (8.5-10.1)
[2022-05-05 09:34] LABS: ALBUMIN 3.2 g/dl (3.4-5.0); BLOOD UREA NITROGEN 9.4 mg/dL (7-18)
[2022-05-05 09:35] LABS: MAGNESIUM 1.8 mg/dL (1.8-2.4)
[2022-05-05 09:37] LABS: CREATININE 0.7 mg/dL (0.55-1.3)
[2022-05-05 09:38] LABS: BILIRUBIN,TOTAL 0.5 mg/dL (0.2-1); TOT PROT 6.5 g/dl (6.4-8.2)
[2022-05-05 13:07] LABS: CARCINOEMBRYONIC ANTIGEN 1.9 ng/mL (0.0-4.7)
[2022-05-05] MEDS: ATORVASTATIN CA 40 MG TABLET (FP) PO SCH (21:47)
[2022-05-06] MEDS: VANCOMYCIN 250 MG/5 ML ORAL SOLUTION PO SCH ×4 (01:00→17:37)
[2022-05-06] MEDS ORDERED: DEXTROSE 5%-WATER 100 ML IVPB ONE (09:45)
[2022-05-06] MEDS: ENOXAPARIN NA (PORCINE) 40 MG/0.4 ML DISP.SYRIN SQ SCH (09:48)
[2022-05-06] MEDS: CEFTRIAXONE 2 GM in DEXTROSE 5%-WATER 2 GM/100 ML BAG IVPB SCH (09:48)
[2022-05-06] MEDS: DONEPEZIL HCL 10 MG TABLET (FP) PO SCH (09:48)
[2022-05-06] MEDS: FAMOTIDINE 20 MG TABLET PO SCH (09:49)
[2022-05-06] MEDS: LACTOBACILLUS ACIDOPHILUS 1 TABLET PO SCH (09:49)
[2022-05-06] MEDS: metoPROLOL SUCCINATE 25 MG TAB.SR.24H (FP) PO SCH (09:49)
[2022-05-06] MEDS: LOSARTAN POTASSIUM 25 MG TABLET PO SCH (09:49)
[2022-05-06] MEDS: ASPIRIN 81 MG CHEWABLE TABLETS PO SCH (09:49)
[2022-05-06] MEDS: ACETAMINOPHEN 1000 MG/100 ML BAG IVPB PRN (09:53)
[2022-05-06 11:47] LABS: BASO % 1.4 % (0-2.0); EOS % 3.2 % (0-4.5); HEMOGLOBIN 12.4 GM/dL (10.7-15.3); LYMPH % 29.1 % (8-40); MCH 27.3 pg (25.7-33.7); MCHC 33.5 g/dl (32.0-36.0); MEAN CELL VOLUME 81.4 fl (80-96); MEAN PLT VOLUME 8.4 fl (7.5-11.1); MONO % 9.9 % (3.8-10.2); NEUT % 56.4 % (42.8-82.8); PLATELET COUNT 339 10^3/uL (134-434); RBC 4.54 M/mm3 (3.60-5.2); RDW 14.9 % (11.6-15.6); WHITE BLOOD COUNT 6.8 K/mm3 (4.0-10.0)
[2022-05-06 12:09] LABS: CALCIUM 9.7 mg/dL (8.5-10.1)
[2022-05-06 12:10] LABS: BLOOD UREA NITROGEN 11.1 mg/dL (7-18); MAGNESIUM 1.9 mg/dL (1.8-2.4)
[2022-05-06 12:13] LABS: CREATININE 0.8 mg/dL (0.55-1.3)
[2022-05-06] MEDS: LACTATED RINGERS SOLUTION 1,000 ML/1,000 ML INFUS.BAG IV SCH (17:37)
[2022-05-06] MEDS: ATORVASTATIN CA 40 MG TABLET (FP) PO SCH (21:47)
[2022-05-07] MEDS: VANCOMYCIN 250 MG/5 ML ORAL SOLUTION PO SCH ×5 (00:15→23:13)
[2022-05-07] MEDS: LACTATED RINGERS SOLUTION 1,000 ML/1,000 ML INFUS.BAG IV SCH ×2 (06:16→18:47)
[2022-05-07] MEDS ORDERED: DEXTROSE 5%-WATER 100 ML IVPB ONE (10:31)
[2022-05-07] MEDS: CEFTRIAXONE 2 GM in DEXTROSE 5%-WATER 2 GM/100 ML BAG IVPB SCH (11:04)
[2022-05-07] MEDS: ASPIRIN 81 MG CHEWABLE TABLETS PO SCH (11:06)
[2022-05-07] MEDS: FAMOTIDINE 20 MG TABLET PO SCH (11:07)
[2022-05-07] MEDS: ENOXAPARIN NA (PORCINE) 40 MG/0.4 ML DISP.SYRIN SQ SCH (11:07)
[2022-05-07] MEDS: DONEPEZIL HCL 10 MG TABLET (FP) PO SCH (11:07)
[2022-05-07] MEDS: LOSARTAN POTASSIUM 25 MG TABLET PO SCH (11:07)
[2022-05-07] MEDS: metoPROLOL SUCCINATE 25 MG TAB.SR.24H (FP) PO SCH (11:07)
[2022-05-07] MEDS: LACTOBACILLUS ACIDOPHILUS 1 TABLET PO SCH (12:35)
[2022-05-07] MEDS: BANATROL PLUS POWDER PACKET PO SCH (21:35)
[2022-05-07] MEDS: ATORVASTATIN CA 40 MG TABLET (FP) PO SCH (21:36)
[2022-05-08] MEDS: LACTATED RINGERS SOLUTION 1,000 ML/1,000 ML INFUS.BAG IV SCH ×3 (01:30→20:59)
[2022-05-08] MEDS: VANCOMYCIN 250 MG/5 ML ORAL SOLUTION PO SCH ×4 (05:34→23:15)
[2022-05-08] MEDS: BANATROL PLUS POWDER PACKET PO SCH ×3 (05:35→22:03)
[2022-05-08] MEDS ORDERED: DEXTROSE 5%-WATER 100 ML IVPB ONE (09:07)
[2022-05-08] MEDS: CEFTRIAXONE 2 GM in DEXTROSE 5%-WATER 2 GM/100 ML BAG IVPB SCH (09:55)
[2022-05-08] MEDS: ENOXAPARIN NA (PORCINE) 40 MG/0.4 ML DISP.SYRIN SQ SCH (09:56)
[2022-05-08] MEDS: LOSARTAN POTASSIUM 25 MG TABLET PO SCH (09:56)
[2022-05-08] MEDS: DONEPEZIL HCL 10 MG TABLET (FP) PO SCH (09:56)
[2022-05-08] MEDS: metoPROLOL SUCCINATE 25 MG TAB.SR.24H (FP) PO SCH (09:56)
[2022-05-08] MEDS: LACTOBACILLUS ACIDOPHILUS 1 TABLET PO SCH (09:56)
[2022-05-08] MEDS: ASPIRIN 81 MG CHEWABLE TABLETS PO SCH (09:56)
[2022-05-08] MEDS: FAMOTIDINE 20 MG TABLET PO SCH (09:56)
[2022-05-08 11:00] LABS: BASO % 1.2 % (0-2.0); EOS % 4.5 % (0-4.5); HEMATOCRIT 38.1 % (32.4-45.2); HEMOGLOBIN 12.7 GM/dL (10.7-15.3); LYMPH % 31.9 % (8-40); MCHC 33.2 g/dl (32.0-36.0); MEAN CELL VOLUME 81.4 fl (80-96); MEAN PLT VOLUME 8.7 fl (7.5-11.1); MONO % 9.2 % (3.8-10.2); NEUT % 53.2 % (42.8-82.8); PLATELET COUNT 327 10^3/uL (134-434); RBC 4.68 M/mm3 (3.60-5.2); RDW 15.2 % (11.6-15.6); WHITE BLOOD COUNT 5.8 K/mm3 (4.0-10.0)
[2022-05-08 11:15] LABS: BLOOD UREA NITROGEN 10.7 mg/dL (7-18); CALCIUM 9.3 mg/dL (8.5-10.1); MAGNESIUM 2.1 mg/dL (1.8-2.4)
[2022-05-08 11:19] LABS: CREATININE 0.7 mg/dL (0.55-1.3)
[2022-05-08] MEDS: ATORVASTATIN CA 40 MG TABLET (FP) PO SCH (22:00)
[2022-05-09] MEDS: VANCOMYCIN 250 MG/5 ML ORAL SOLUTION PO SCH ×3 (05:57→17:41)
[2022-05-09] MEDS: BANATROL PLUS POWDER PACKET PO SCH ×3 (05:58→22:12)
[2022-05-09] MEDS ORDERED: DEXTROSE 5%-WATER 100 ML IVPB ONE (10:52)
[2022-05-09] MEDS: ASPIRIN 81 MG CHEWABLE TABLETS PO SCH (10:57)
[2022-05-09] MEDS: LACTOBACILLUS ACIDOPHILUS 1 TABLET PO SCH (10:57)
[2022-05-09] MEDS: FAMOTIDINE 20 MG TABLET PO SCH (10:57)
[2022-05-09] MEDS: DONEPEZIL HCL 10 MG TABLET (FP) PO SCH (10:57)
[2022-05-09] MEDS: LOSARTAN POTASSIUM 25 MG TABLET PO SCH (10:57)
[2022-05-09] MEDS: metoPROLOL SUCCINATE 25 MG TAB.SR.24H (FP) PO SCH (10:57)
[2022-05-09] MEDS: ENOXAPARIN NA (PORCINE) 40 MG/0.4 ML DISP.SYRIN SQ SCH (10:57)
[2022-05-09] MEDS: CEFTRIAXONE 2 GM in DEXTROSE 5%-WATER 2 GM/100 ML BAG IVPB SCH (10:57)
[2022-05-09] MEDS: LACTATED RINGERS SOLUTION 1,000 ML/1,000 ML INFUS.BAG IV SCH (13:10)
[2022-05-09] MEDS: ATORVASTATIN CA 40 MG TABLET (FP) PO SCH (22:12)
[2022-05-10] MEDS: VANCOMYCIN 250 MG/5 ML ORAL SOLUTION PO SCH ×4 (00:45→17:58)
[2022-05-10] MEDS: BANATROL PLUS POWDER PACKET PO SCH ×3 (07:13→22:07)
[2022-05-10] MEDS ORDERED: DEXTROSE 5%-WATER 100 ML IVPB ONE (08:48)
[2022-05-10] MEDS: DONEPEZIL HCL 10 MG TABLET (FP) PO SCH (09:50)
[2022-05-10] MEDS: metoPROLOL SUCCINATE 25 MG TAB.SR.24H (FP) PO SCH (09:51)
[2022-05-10] MEDS: LOSARTAN POTASSIUM 25 MG TABLET PO SCH (09:51)
[2022-05-10] MEDS: LACTOBACILLUS ACIDOPHILUS 1 TABLET PO SCH (09:51)
[2022-05-10] MEDS: FAMOTIDINE 20 MG TABLET PO SCH (09:51)
[2022-05-10] MEDS: ASPIRIN 81 MG CHEWABLE TABLETS PO SCH (09:51)
[2022-05-10] MEDS: CEFTRIAXONE 2 GM in DEXTROSE 5%-WATER 2 GM/100 ML BAG IVPB SCH (09:53)
[2022-05-10] MEDS: ENOXAPARIN NA (PORCINE) 40 MG/0.4 ML DISP.SYRIN SQ SCH (10:00)
[2022-05-10] MEDS: LACTATED RINGERS SOLUTION 1,000 ML/1,000 ML INFUS.BAG IV SCH (14:30)
[2022-05-10] MEDS: ATORVASTATIN CA 40 MG TABLET (FP) PO SCH (22:07)
[2022-05-10] MEDS: MELATONIN 5 MG TABLETS PO PRN (22:07)
[2022-05-11] MEDS: VANCOMYCIN 250 MG/5 ML ORAL SOLUTION PO SCH ×4 (01:27→17:07)
[2022-05-11] MEDS: BANATROL PLUS POWDER PACKET PO SCH ×3 (05:38→22:49)
[2022-05-11] MEDS ORDERED: LOSARTAN POTASSIUM 50 MG TABLET PO SCH (08:52)
[2022-05-11] MEDS ORDERED: LACTATED RINGERS SOLUTION 1,000 ML/1,000 ML INFUS.BAG IV SCH (08:53)
[2022-05-11] MEDS ORDERED: DEXTROSE 5%-WATER 100 ML IVPB ONE (10:14)
[2022-05-11] MEDS: DONEPEZIL HCL 10 MG TABLET (FP) PO SCH (10:19)
[2022-05-11] MEDS: LACTOBACILLUS ACIDOPHILUS 1 TABLET PO SCH (10:19)
[2022-05-11] MEDS: ENOXAPARIN NA (PORCINE) 40 MG/0.4 ML DISP.SYRIN SQ SCH (10:19)
[2022-05-11] MEDS: metoPROLOL SUCCINATE 25 MG TAB.SR.24H (FP) PO SCH (10:20)
[2022-05-11] MEDS: CEFTRIAXONE 2 GM in DEXTROSE 5%-WATER 2 GM/100 ML BAG IVPB SCH (10:20)
[2022-05-11] MEDS: FAMOTIDINE 20 MG TABLET PO SCH (10:20)
[2022-05-11] MEDS: ASPIRIN 81 MG CHEWABLE TABLETS PO SCH (10:20)
[2022-05-11] MEDS: ATORVASTATIN CA 40 MG TABLET (FP) PO SCH (22:49)
[2022-05-11] MEDS: MELATONIN 5 MG TABLETS PO PRN (22:49)
[2022-05-11 22:53] VITALS: BP 147/82; PULSE 70; TEMP 98.8
[2022-05-12] MEDS: VANCOMYCIN 250 MG/5 ML ORAL SOLUTION PO SCH (01:19)
== END 2022-05-12 01:50 | DRG 392 ==
LOC: JER 14:19 → JERBED 18:58 → J8W 05-01 13:19
PROVIDERS: ADMIT Internal Medicine
DX: K57.32 Diverticulitis of large intestine without perforation or abscess without bleeding (principal); I69.354 Hemiplegia and hemiparesis following cerebral infarction affecting left non-dominant side; A04.72 Enterocolitis due to Clostridium difficile, not specified as recurrent; I25.10 Atherosclerotic heart disease of native coronary artery without angina pectoris; I10 Essential (primary) hypertension; K57.30 Diverticulosis of large intestine without perforation or abscess without bleeding; E78.5 Hyperlipidemia, unspecified; K86.89 Other specified diseases of pancreas; K21.9 Gastro-esophageal reflux disease without esophagitis; F03.90 Unspecified dementia, unspecified severity, without behavioral disturbance, psychotic disturbance, mood disturbance, and anxiety; I44.0 Atrioventricular block, first degree; N28.1 Cyst of kidney, acquired; E89.0 Postprocedural hypothyroidism; Z85.51 Personal history of malignant neoplasm of bladder
CPT/HCPCS: 0241U-QW; 36415; 71045-TC-FY; 74176-TC; 74178-TC; 80048; 80053; 81003; 82272; 82378; 82962; 83735; 84100; 84443; 84484; 85025; 86140; 86301; 87045; 87046; 87086; 87324; 87449; 87493; 87798; 93005; 93010; 97116-GP; 97162-GP; 99285-25; Q9967

== ENCOUNTER 2023-01-07 13:22 | Inpatient (IN) | payer OTHER ==
[2023-01-07] MEDS ORDERED: MECLIZINE HCL 12.5 MG TABLET PO ONE (15:26)
[2023-01-07] MEDS ORDERED: MECLIZINE HCL 12.5 MG TABLET ONE (15:53)
[2023-01-07 17:19] LABS: BASO % 0.7 % (0-2.0); HEMATOCRIT 36.1 % (32.4-45.2); HEMOGLOBIN 11.8 GM/dL (10.7-15.3); LYMPH % 36.4 % (8-40); MCH 26.5 pg (25.7-33.7); MCHC 32.6 g/dl (32.0-36.0); MEAN CELL VOLUME 81.2 fl (80-96); MEAN PLT VOLUME 8.2 fl (7.5-11.1); MONO % 7.9 % (3.8-10.2); PLATELET COUNT 253 10^3/uL (134-434); RBC 4.45 M/mm3 (3.60-5.2); RDW 14.7 % (11.6-15.6); WHITE BLOOD COUNT 6.4 K/mm3 (4.0-10.0)
[2023-01-07 18:24] LABS: ALBUMIN 3.5 g/dl (3.4-5.0); BLOOD UREA NITROGEN 19.1 mg/dL (7-18); CALCIUM 9.1 mg/dL (8.5-10.1); MAGNESIUM 2.1 mg/dL (1.8-2.4)
[2023-01-07 18:26] LABS: CREATININE 0.9 mg/dL (0.55-1.3)
[2023-01-07 18:28] LABS: BILIRUBIN,TOTAL 0.3 mg/dL (0.2-1); TOT PROT 6.9 g/dl (6.4-8.2)
[2023-01-07] MEDS ORDERED: METOCLOPRAMIDE HCL INJECTION 10 MG/2 ML VIAL IVPUSH ONE (18:28)
[2023-01-07] MEDS ORDERED: METOCLOPRAMIDE HCL INJECTION 10 MG/2 ML VIAL ONE (19:01)
[2023-01-08] MEDS ORDERED: LACTATED RINGERS SOLUTION 1000 ML INFUS.BAG IV ONE (00:45)
[2023-01-08 02:27] LABS: CREATININE 0.8 mg/dL (0.55-1.3); PHOSPHOROUS 3.4 mg/dL (2.5-4.9)
[2023-01-08] MEDS: INSULIN SLIDING SCALE (NOVOLOG) 1 VIAL SQ SCH ×4 (06:20→17:21)
[2023-01-08 07:35] VITALS: BMI 27.1
[2023-01-08] MEDS: ENOXAPARIN NA (PORCINE) 40 MG/0.4 ML DISP.SYRIN SQ SCH (09:06)
[2023-01-08] MEDS: DONEPEZIL HCL 10 MG TABLET (FP) PO SCH (09:06)
[2023-01-08] MEDS: PANTOPRAZOLE 20 MG TABLET PO SCH (09:06)
[2023-01-08] MEDS: ASPIRIN 81 MG CHEWABLE TABLETS PO SCH (09:06)
[2023-01-08 10:05] LABS: PH,URINE 8.5 (5.0-8.0); URINE APPEARANCE CLEAR; URINE BILIRUBIN NEGATIVE (NEGATIVE); URINE COLOR YELLOW; URINE GLUCOSE (UA) NEGATIVE (NEGATIVE); URINE KETONE NEGATIVE (NEGATIVE); URINE LEUK ESTERASE NEGATIVE (NEGATIVE); URINE NITRITE NEGATIVE (NEGATIVE); URINE PROTEIN NEGATIVE (NEGATIVE); URINE UROBILINOGEN 0.2 mg/dL (0.2-1.0)
[2023-01-08] MEDS: ATORVASTATIN CA 40 MG TABLET (FP) PO SCH (21:10)
[2023-01-09] MEDS: INSULIN SLIDING SCALE (NOVOLOG) 1 VIAL SQ SCH ×3 (06:43→17:00)
[2023-01-09] MEDS: ENOXAPARIN NA (PORCINE) 40 MG/0.4 ML DISP.SYRIN SQ SCH (09:55)
[2023-01-09] MEDS: ASPIRIN 81 MG CHEWABLE TABLETS PO SCH (09:55)
[2023-01-09] MEDS: PANTOPRAZOLE 20 MG TABLET PO SCH (09:55)
[2023-01-09] MEDS: DONEPEZIL HCL 10 MG TABLET (FP) PO SCH (09:55)
[2023-01-09] MEDS: ATORVASTATIN CA 40 MG TABLET (FP) PO SCH (21:49)
[2023-01-10] MEDS: INSULIN SLIDING SCALE (NOVOLOG) 1 VIAL SQ SCH ×3 (06:14→17:20)
[2023-01-10] MEDS: ASPIRIN 81 MG CHEWABLE TABLETS PO SCH (09:55)
[2023-01-10] MEDS: PANTOPRAZOLE 20 MG TABLET PO SCH (09:55)
[2023-01-10] MEDS: ENOXAPARIN NA (PORCINE) 40 MG/0.4 ML DISP.SYRIN SQ SCH (09:55)
[2023-01-10] MEDS: LOSARTAN POTASSIUM 50 MG TABLET PO SCH (09:55)
[2023-01-10] MEDS: metoPROLOL SUCCINATE 25 MG TAB.SR.24H (FP) PO SCH (09:55)
[2023-01-10] MEDS: DONEPEZIL HCL 10 MG TABLET (FP) PO SCH (09:55)
[2023-01-10] MEDS: ATORVASTATIN CA 40 MG TABLET (FP) PO SCH (22:09)
[2023-01-11] MEDS: INSULIN SLIDING SCALE (NOVOLOG) 1 VIAL SQ SCH ×2 (06:09→12:03)
[2023-01-11] MEDS: PANTOPRAZOLE 20 MG TABLET PO SCH (10:38)
[2023-01-11] MEDS: DONEPEZIL HCL 10 MG TABLET (FP) PO SCH (10:38)
[2023-01-11] MEDS: LOSARTAN POTASSIUM 50 MG TABLET PO SCH (10:38)
[2023-01-11] MEDS: ENOXAPARIN NA (PORCINE) 40 MG/0.4 ML DISP.SYRIN SQ SCH (10:38)
[2023-01-11] MEDS: metoPROLOL SUCCINATE 25 MG TAB.SR.24H (FP) PO SCH (10:38)
[2023-01-11] MEDS: ASPIRIN 81 MG CHEWABLE TABLETS PO SCH (10:38)
[2023-01-11 12:57] LABS: HEMATOCRIT 38.3 % (32.4-45.2); HEMOGLOBIN 12.3 GM/dL (10.7-15.3); MEAN CELL VOLUME 81.4 fl (80-96); MEAN PLT VOLUME 8.4 fl (7.5-11.1); PLATELET COUNT 268 10^3/uL (134-434); RBC 4.71 M/mm3 (3.60-5.2); RDW 15.3 % (11.6-15.6); WHITE BLOOD COUNT 7.1 K/mm3 (4.0-10.0)
[2023-01-11 13:42] LABS: CALCIUM 9.4 mg/dL (8.5-10.1)
[2023-01-11 13:43] LABS: ALBUMIN 3.4 g/dl (3.4-5.0); BLOOD UREA NITROGEN 15.9 mg/dL (7-18)
[2023-01-11 13:46] LABS: CREATININE 0.9 mg/dL (0.55-1.3)
[2023-01-11 13:47] LABS: BILIRUBIN,TOTAL 0.8 mg/dL (0.2-1); TOT PROT 7.2 g/dl (6.4-8.2)
[2023-01-11] MEDS ORDERED: ACETAMINOPHEN 500 MG TABLET (FP) PO ONE (14:57)
[2023-01-11] MEDS: ATORVASTATIN CA 40 MG TABLET (FP) PO SCH (22:12)
[2023-01-12] MEDS: ENOXAPARIN NA (PORCINE) 40 MG/0.4 ML DISP.SYRIN SQ SCH (09:31)
[2023-01-12] MEDS: DONEPEZIL HCL 10 MG TABLET (FP) PO SCH (09:31)
[2023-01-12] MEDS: LOSARTAN POTASSIUM 50 MG TABLET PO SCH (09:32)
[2023-01-12] MEDS: ASPIRIN 81 MG CHEWABLE TABLETS PO SCH (09:32)
[2023-01-12] MEDS: metoPROLOL SUCCINATE 25 MG TAB.SR.24H (FP) PO SCH (09:32)
[2023-01-12] MEDS: PANTOPRAZOLE 20 MG TABLET PO SCH (09:32)
[2023-01-12] MEDS: ATORVASTATIN CA 40 MG TABLET (FP) PO SCH (21:26)
[2023-01-13 09:06] VITALS: RESP 18
[2023-01-13] MEDS: ENOXAPARIN NA (PORCINE) 40 MG/0.4 ML DISP.SYRIN SQ SCH (10:03)
[2023-01-13] MEDS: metoPROLOL SUCCINATE 25 MG TAB.SR.24H (FP) PO SCH (10:04)
[2023-01-13] MEDS: PANTOPRAZOLE 20 MG TABLET PO SCH (10:04)
[2023-01-13] MEDS: DONEPEZIL HCL 10 MG TABLET (FP) PO SCH (10:04)
[2023-01-13] MEDS: LOSARTAN POTASSIUM 50 MG TABLET PO SCH (10:04)
[2023-01-13] MEDS: ASPIRIN 81 MG CHEWABLE TABLETS PO SCH (10:04)
[2023-01-13] MEDS: ATORVASTATIN CA 40 MG TABLET (FP) PO SCH (22:40)
[2023-01-14] MEDS: LOSARTAN POTASSIUM 50 MG TABLET PO SCH (09:39)
[2023-01-14] MEDS: PANTOPRAZOLE 20 MG TABLET PO SCH (09:39)
[2023-01-14] MEDS: ENOXAPARIN NA (PORCINE) 40 MG/0.4 ML DISP.SYRIN SQ SCH (09:40)
[2023-01-14] MEDS: metoPROLOL SUCCINATE 25 MG TAB.SR.24H (FP) PO SCH (09:40)
[2023-01-14] MEDS: ASPIRIN 81 MG CHEWABLE TABLETS PO SCH (09:40)
[2023-01-14] MEDS: DONEPEZIL HCL 10 MG TABLET (FP) PO SCH (09:40)
[2023-01-14 18:47] VITALS: BP 156/91; PULSE 63; TEMP 97.9
== END 2023-01-14 18:46 | disposition home health service (06) | DRG 178 ==
LOC: JER 13:22 → JERBED 17:50 → J4W 01-08 05:04 → J4S 01-08 11:33 → OBSVTOIN 01-08 12:36
PROVIDERS: ADMIT Internal Medicine; ATTEND Internal Medicine
DX: A15.8 Other respiratory tuberculosis (principal); I69.351 Hemiplegia and hemiparesis following cerebral infarction affecting right dominant side; I25.10 Atherosclerotic heart disease of native coronary artery without angina pectoris; E78.5 Hyperlipidemia, unspecified; K21.9 Gastro-esophageal reflux disease without esophagitis; F03.90 Unspecified dementia, unspecified severity, without behavioral disturbance, psychotic disturbance, mood disturbance, and anxiety; K86.9 Disease of pancreas, unspecified; I44.0 Atrioventricular block, first degree; R29.810 Facial weakness; I95.1 Orthostatic hypotension; K57.90 Diverticulosis of intestine, part unspecified, without perforation or abscess without bleeding; R73.9 Hyperglycemia, unspecified; E03.9 Hypothyroidism, unspecified; M79.652 Pain in left thigh; R26.81 Unsteadiness on feet; J98.4 Other disorders of lung; N28.1 Cyst of kidney, acquired; E04.1 Nontoxic single thyroid nodule; Z85.42 Personal history of malignant neoplasm of other parts of uterus
CPT/HCPCS: 0241U-QW; 36415; 70450-TC; 70551-TC; 71045-TC-FY; 71250-TC; 80048; 80053; 80061; 81003; 82962; 83735; 84100; 84443; 84484; 85025; 85027; 86480; 87040; 87086; 87116; 87206; 93005; 93010; 93306-TC; 93880-TC; 93971-TC; 97116-GP; 97162-GP; 99285-25; G0378